=== PATIENT | female | born 1965 | race African-American/Black ===

== ENCOUNTER 2017-02-06 10:01 | Inpatient (IN) | payer OTHER ==
[2017-02-06] VITALS (8 sets, daily range): BP systolic 120–159; BP diastolic 71–96; PULSE 86–102; RESP 12–20; TEMP 97.8–98.8; O2SAT 95–100
[~2017-02-06] VITALS: Ht 180.3 cm; Wt 100.0 kg
[~2017-02-06 10:01] MED LIST: ALBUAER3 INH; AMLO5 PO; BENZ100 PO; DIGO0.12 PO; DOXY100C PO; GLIM1TAB PO; INSU100V2 SQ; SPIR25TA PO
[2017-02-06] MEDS ORDERED: ONDANSETRON HCL 4 MG/2 ML VIAL IVP ONE (10:30)
[2017-02-06] MEDS ORDERED: MORPHINE SULFATE 8 MG/ML INJ IV PUSH ONE (10:30)
[2017-02-06] MEDS ORDERED: SODIUM CHLOR 0.9% 1000 ML INJ 1,000 ML IV SCH (10:30)
[2017-02-06] MEDS ORDERED: SODIUM CHLORIDE 0.9% FLUSH 10 ML FLUSH IV FLUSH PRN ×2 (10:30→14:30)
[2017-02-06 11:38] LABS: BASOPHIL % 0.2 % (0.0-2.0); EOSINOPHIL # 0.1 TH/MM3 (0-0.4); HEMATOCRIT 36.3 % (35.0-46.0); HEMO FLAGS DIFF FINAL; LYMPH % 29.6 % (9.0-44.0); MEAN CELL VOLUME 74.7 FL (80.0-100.0); MEAN CORPUSCULAR HEMOGLOBIN 23.1 PG (27.0-34.0); MEAN CORPUSCULAR HGB CONC 30.9 % (32.0-36.0); MONO % 7.7 % (0.0-8.0); NEUT % 60.5 % (16.0-70.0); PLATELET COUNT 248 TH/MM3 (150-450); RED BLOOD COUNT 4.85 MIL/MM3 (4.00-5.30); RED CELL DISTRIBUTION WIDTH 14.2 % (11.6-17.2); WHITE BLOOD COUNT 6.6 TH/MM3 (4.0-11.0)
[2017-02-06 11:48] LABS: APTT (PATIENT) 27.9 SEC (24.3-30.1); INTERNATIONAL NORMALIZED RATIO 1.1 RATIO
[2017-02-06 11:53] LABS: BICARBONATE 22.7 MEQ/L (21.0-32.0); POTASSIUM 4.4 MEQ/L (3.5-5.1)
[2017-02-06 11:56] LABS: INDIRECT BILIRUBIN 0.3 MG/DL (0.0-0.8); TOTAL BILIRUBIN ADULT 0.4 MG/DL (0.2-1.0)
[2017-02-06] MEDS ORDERED: IOHEXOL 350 MG/ML 10 ML VIAL (for RAD DIAG) IV ONE (12:21)
[2017-02-06 12:25] LABS: BACTERIA, URINE MOD /hpf; BLOOD, URINE NEG (NEG); COMMENT (UR) CULTURE INDICATED; CULTURE IF INDICATED CULTURE INDICATED; GLUCOSE,URINE TRACE mg/dL (NEG); KETONE, URINE NEG (NEG); MUCUS URINE FEW /lpf (OCC); NITRITE,URINE POS (NEG); SQUAMOUS EPITHELIAL CELL URINE 4 /hpf (0-5); URINE COLOR YELLOW (YELLW/STRAW)
--- NOTE | 2017-02-06 12:41 | RADRPT ---
EXAM DATE/TIME: 02/06/2017 12:13 [place] COMPARISON: No previous studies available for comparison. INDICATIONS : Abdomen pain. IV CONTRAST: 75 cc Omnipaque 350 (iohexol) IV ORAL CONTRAST: No oral contrast ingested. RADIATION DOSE: 16.44 CTDIvol (mGy) MEDICAL HISTORY : Hypertension. SURGICAL HISTORY : section. Hysterectomy. ENCOUNTER: Initial ACUITY: 1 day PAIN SCALE: 4/10 LOCATION: Bilateral abdomen. TECHNIQUE: Volumetric scanning of the abdomen and pelvis was performed. Using automated exposure control and ad justment of the mA and/or kV according to patient size, radiation dose was kept as low as reasonably achievable to obtain optimal diagnostic quality images. DICOM format image data is available electro nically for review and comparison. FINDINGS: CT Abdomen: There is diminished enhancement involving the left kidney measures 4.1 cm in size could r epresent pyelonephritis in the appropriate clinical setting. The spleen, pancreas, right kidney, adre nals are unremarkable. There is no evidence for any appreciable pathological adenopathy, free fluid, or bowel obstruction. The liver is fatty without focal lesions or technique. CT pelvis: There is no evidence for mass, abscess formation, or any significant adenopathy within the pelvis. There is an approximate 4.7 cm lipoma in the left anterior thigh. CONCLUSION: 1. Abnormal diminished enhancement of the left kidney could represent pyelonephritis in the appropria te clinical setting or possibly an area of infarction. 2. Fatty liver. Shreyas Ng MD on February 06, 2017 at 12:34 Board Certified Radiologist. This report was verified electronically.
[2017-02-06] MEDS ORDERED: cefTRIAXone INJ 1,000 MG in SODIUM CHLORIDE 0.9% INJ 100 ML IV ONE (13:00)
[2017-02-06] MEDS ORDERED: ONDANSETRON HCL 4 MG/2 ML VIAL IV PUSH ONE (13:00)
--- NOTE | 2017-02-06 13:05 | PD ---
HPI Chief Complaint: GI Complaint Time Seen by Provider: 10:25 Travel History International Travel<30 days: No Contact w/Intl Traveler<30days: No Traveled to known affect area: No History of Present Illness HPI Patient is a 51-year-old female comes in complaining of nausea, vomiting, abdominal pain. She says it started with nausea last week, she started to have pain to her right flank and abdomen Th. She started vomiting yesterday. She says she does not know if she had a fever, because she has hot flashes. She denies dysuria, but does report increased urgency and frequency. She says the pain in her abdomen is in the upper and lower portions of her abdomen. She says she has never had any symptoms like this before. She denies chest pain or shortness of breath. PFSH Past Medical History Hx Anticoagulant Therapy: Yes (ASA) Asthma: Yes Autoimmune Disease: No Blood Disorders: No Anxiety: No Depression: Yes Heart Rhythm Problems: Yes Cancer: No Cardiovascular Problems: Yes (HTN) High Cholesterol: Yes Chemotherapy: No Congestive Heart Failure: Yes COPD: No Cerebrovascular Accident: No Coronary Artery Disease: Yes Diabetes: Yes Patient Takes Glucophage: No Endocrine: Yes Gastrointestinal Disorders: Yes Genitourinary: No Headaches: Yes Hepatitis: No Hiatal Hernia: No Hypertension: Yes Immune Disorder: No Medical other: No Musculoskeletal: No Neurologic: No Psychiatric: No Reproductive: No Respiratory: Yes (HX OF SINUS INFECTIONS) Radiation Therapy: No Seizures: No Sickle Cell Disease: No Thyroid Disease: No PNEUMOCCOCAL Vaccine (Year): 2 ?: Not Menopausal: Yes : 2 Para: 2 Past Surgical History AICD: No Gynecologic Surgery: Yes (C SECTION, LAP SUPRACERVICAL HYSTERECTOMY 2012) Hysterectomy: Yes Joint Replacement: No Pacemaker: No Other Surgery: Yes Social History Alcohol Use: No Tobacco Use: No Substance Use: No Allergies-Medications (Allergen,Severity, Reaction): Coded Allergies: Glucophage (Verified Allergy, Severe, SEVERE DIARRHEA, 06/19/16) Sulfa (Verified Allergy, Severe, Itching, 06/19/16) SEVERE ITCHING Reported Meds & Prescriptions Reported Meds & Active Scripts Active Tessalon Perles (Benzonatate) 100 Mg Cap 100 Mg PO TID PRN Proair Hfa 8.5 GM Inh (Albuterol Sulfate) 90 Mcg/Act Aer 2 Puff INH Q4-6H PRN 108 mcg/actuation Reported Humulin R Inj (Insulin Human Regular) 1,000 Unit/10 Ml Vial 14 Units SQ HS Spironolactone 25 Mg Tab 12.5 Mg PO DAILY Digoxin 0.125 Mg Tab 0.125 Mg PO DAILY Glimepiride 1 Mg Tab 8 Mg PO DAILY Take with breakfast or first main meal Norvasc (Amlodipine Besylate) 5 Mg Tab 5 Mg PO DAILY Review of Systems Except as stated in HPI: all other systems reviewed are Neg Eyes: No: Blurred Vision HENT: No: Headaches, Lightheadedness Cardiovascular: No: Chest Pain or Discomfort Respiratory: No: Shortness of Breath Gastrointestinal: Positive: Nausea, Vomiting, Abdominal Pain Genitourinary: Positive: Urgency, Frequency, Flank Pain Skin: No Rash, No Change in Pigmentation Neurologic: No: Weakness, Dizziness Physical Exam Narrative GENERAL: Awake and alert, in no acute distress. SKIN: Focused skin assessment warm/dry. HEAD: Atraumatic. Normocephalic. EYES: Pupils equal and round. No scleral icterus. ENT: Mucous membranes pink and moist. NECK: Trachea midline. No JVD. CARDIOVASCULAR: Regular rate and rhythm. No murmur appreciated. RESPIRATORY: No accessory muscle use. Clear to auscultation. Breath sounds equal bilaterally. GASTROINTESTINAL: Abdomen soft, nondistended. Right CVA tenderness. Tender to palpation of the epigastric and right upper quadrant area. Tender to palpation across lower abdomen. No rebound or guarding. MUSCULOSKELETAL: No obvious deformities. No clubbing. No cyanosis. No edema. NEUROLOGICAL: Awake and alert. No obvious cranial nerve deficits. Motor grossly within normal limits. Normal speech. PSYCHIATRIC: Appropriate mood and affect; insight and judgment normal. Data Data Last Documented VS Vital Signs Date Time Temp Pulse Resp B/P Pulse Ox O2 Delivery O2 Flow Rate FiO2 02/06/17 12:04 93 18 132/71 97 Room Air 02/06/17 10:45 2 02/06/17 10:03 98.2 Orders Electrocardiogram (02/06/17 ) Basic Metabolic Panel (Bmp) (02/06/17 10:30) Complete Blood Count With Diff (02/06/17 10:30) Lipase (02/06/17 10:30) Prothrombin Time / Inr (Pt) (02/06/17 10:30) Act Partial Throm Time (Ptt) (02/06/17 10:30) Urinalysis - C+S If Indicated (02/06/17 10:30) Ua Includes Microscopic (02/06/17 10:30) Ct Abd/Pel W Iv Contrast(Rout) (02/06/17 10:30) Iv Access Insert/Monitor (02/06/17 10:30) Ecg Monitoring (02/06/17 10:30) Oximetry (02/06/17 10:30) Ondansetron Inj (Zofran Inj) (02/06/17 10:30) Sodium Chlor 0.9% 1000 Ml Inj (Ns 1000 M (02/06/17 10:30) Sodium Chloride 0.9% Flush (Ns Flush) (02/06/17 10:30) Hepatic Functional Panel (02/06/17 10:30) Morphine Inj (Morphine Inj) (02/06/17 10:30) Iohexol 350 Inj (Omnipaque 350 Inj) (02/06/17 12:21) Urine Culture (02/06/17 12:05) Ceftriaxone Inj (Rocephin Inj) (02/06/17 13:00) Ondansetron Inj (Zofran Inj) (02/06/17 13:00) Ketorolac Inj (Toradol Inj) (02/06/17 14:00) Oxycodone-Acetamin 5-325 Mg (Percocet (02/06/17 14:00) Admit Order (Ed Use Only) (02/06/17 ) Labs Laboratory Tests Test 02/06/17 02/06/17 10:47 12:05 White Blood Count 6.6 TH/MM3 Red Blood Count 4.85 MIL/MM3 Hemoglobin 11.2 GM/DL Hematocrit 36.3 % Mean Corpuscular Volume 74.7 FL Mean Corpuscular Hemoglobin 23.1 PG Mean Corpuscular Hemoglobin 30.9 % Concent Red Cell Distribution Width 14.2 % Platelet Count 248 TH/MM3 Mean Platelet Volume 8.7 FL Neutrophils (%) (Auto) 60.5 % Lymphocytes (%) (Auto) 29.6 % Monocytes (%) (Auto) 7.7 % Eosinophils (%) (Auto) 2.0 % Basophils (%) (Auto) 0.2 % Neutrophils # (Auto) 4.0 TH/MM3 Lymphocytes # (Auto) 2.0 TH/MM3 Monocytes # (Auto) 0.5 TH/MM3 Eosinophils # (Auto) 0.1 TH/MM3 Basophils # (Auto) 0.0 TH/MM3 CBC Comment DIFF FINAL Differential Comment Prothrombin Time 12.0 SEC Prothromb Time International 1.1 RATIO Ratio Activated Partial 27.9 SEC Thromboplast Time Sodium Level 136 MEQ/L Potassium Level 4.4 MEQ/L Chloride Level 105 MEQ/L Carbon Dioxide Level 22.7 MEQ/L Anion Gap 8 MEQ/L Blood Urea Nitrogen 18 MG/DL Creatinine 0.97 MG/DL Estimat Glomerular Filtration 73 ML/MIN Rate Random Glucose 287 MG/DL Calcium Level 9.2 MG/DL Total Bilirubin 0.4 MG/DL Direct Bilirubin 0.1 MG/DL Indirect Bilirubin 0.3 MG/DL Aspartate Amino Transf 10 U/L (AST/SGOT) Alanine Aminotransferase 17 U/L (ALT/SGPT) Alkaline Phosphatase 94 U/L Total Protein 7.7 GM/DL Albumin 3.3 GM/DL Lipase 80 U/L Urine Color YELLOW Urine Turbidity HAZY Urine pH 5.0 Urine Specific [place] 1.010 Urine Protein NEG mg/dL Urine Glucose (UA) TRACE mg/dL Urine Ketones NEG mg/dL Urine Occult Blood NEG Urine Nitrite POS Urine Bilirubin NEG Urine Urobilinogen LESS THAN 2.0 MG/DL Urine Leukocyte Esterase LARGE Urine RBC 2 /hpf Urine WBC 18 /hpf Urine Squamous Epithelial 4 /hpf Cells Urine Bacteria MOD /hpf Urine Mucus FEW /lpf Microscopic Urinalysis Comment CULTURE INDICATED MDM Medical Decision Making Medical Screen Exam Complete: Yes Emergency Medical Condition: Yes Medical Record Reviewed: Yes Differential Diagnosis UTI versus cholecystitis versus pancreatitis versus pyelonephritis Narrative Course Patient is a 51-year-old female comes in complaining of nausea, vomiting, abdominal pain. Exam shows tenderness to palpation without rebound or guarding. IV established, labs sent. Urinalysis is positive for UTI. Patient given IV fluids, morphine, Zofran. CT of the abdomen and pelvis performed shows likely pyelonephritis. Patient given a dose of Rocephin. Given additional Zofran for continued nausea. She continues to have pain and nausea. She will be placed in observation for further management. Diagnosis Primary Impression: Pyelonephritis Admitting Information Admitting Physician Requests: Observation Condition: Stable Мария Harden MD Feb 06, 2017 13:05
[2017-02-06] MEDS ORDERED: oxyCODONE/ACETAMINOPHEN 5 MG/325 MG TAB PO ONE (14:00)
[2017-02-06] MEDS ORDERED: KETOROLAC TROMETHAMINE 30 MG/ML (IVP) VIAL IV PUSH ONE (14:00)
[2017-02-06] MEDS ORDERED: MORPHINE SULFATE 4 MG/ML INJ IV PUSH PRN (14:30)
[2017-02-06] MEDS ORDERED: DEXTROSE 50% IN WATER 50 ML VIAL(D50) IV PRN (14:30)
[2017-02-06] MEDS ORDERED: GLUCAGON 1 MG/ML VIAL OTHER PRN (14:30)
[2017-02-06] MEDS ORDERED: NALOXONE HCL 0.4 MG/ML AMP IV PRN (14:30)
[2017-02-06] MEDS ORDERED: ACETAMINOPHEN 325 MG TAB PO PRN (14:30)
[2017-02-06] MEDS ORDERED: ALBUTEROL SULFATE 90 MCG/ACT HFA 8 GM INHALER INH PRN (14:45)
[2017-02-06] MEDS: SODIUM CHLOR 0.9% 1000 ML INJ 1,000 ML IV SCH (15:16)
[2017-02-06] MEDS: HEPARIN SODIUM - SQ 10,000 UNITS/ML VIAL SQ SCH (15:17)
--- NOTE | 2017-02-06 15:35 | HHI.HP ---
[facility] Vick Carney DO Admission Diagnosis pyelonephritis Diagnoses: Chief Complaint: lower abdomen pain Travel History International Travel<30 Days: No Contact w/Intl Traveler <30 Da: No Traveled to Known Affected Are: No History of Present Illness This is a pleasant 51-year-old female with significant past medical history of cardiomyopathy, CHF, type 2 diabetes, hypertension. Patient presented to the emergency room for evaluation of lower abdominal pain associated with nausea vomiting diarrhea. Patient indicates symptoms started on Tuesday, she noted pelvic pain with urine that was concentrated, dribbling small amounts. Over the next couple days, she started to have chills and night sweats, unsure if she had fever. Today she had nausea vomiting at least 3 times , no hematemesis. She's also noted diarrhea that started yesterday, watery, multiple episodes. Indicates that today the pain is more severe and now present to the right flank. Denies any chest pain, no shortness of breath. Patient was evaluated in emergency room, urinalysis was positive for nitrates leukocyte esterase and bacteria. BMP remarkable for blood glucose 287. Creatinine stable. CBC essentially unremarkable except for hemoglobin 11.2. Vital signs temperature 90.2, pulse rate 102, respiratory rate 15, for pressure 159/96 sats 98% on [address] of the abdomen and pelvis showed abnormal diminished enhancement of the left kidney that could represent pyelonephritis in the appropriate clinical setting or possibly an area of infarction. Also fatty liver. Patient was given IV fluids, started on antibiotics. At this time , she is resting comfortably. Patient is admitted for further evaluation and treatment. Review of Systems Constitutional: COMPLAINS OF: Chills, Change in appetite, Night Sweats Endocrine: DENIES: Abnorml menstrual pattern, Heat/cold intolerance, Polydipsia , Polyuria, Polyphagia Eyes: DENIES: Blurred vision, Diplopia, Eye inflammation, Eye pain, Vision loss , Photosensitivity, Double Vision Ears, nose, mouth, throat: DENIES: Tinnitus, Hearing loss, Vertigo, Nasal discharge, Oral lesions, Throat pain, Hoarseness, Ear Pain, Running Nose, Epistaxis, Sinus Pain, Toothache, Odynophagia Respiratory: DENIES: Apneas, Cough, Snoring, Wheezing, Hemoptysis, Sputum production, Shortness of breath Cardiovascular: DENIES: Chest pain, Palpitations, Syncope, Dyspnea on Exertion , PND, Lower Extremity Edema, Orthopnea, Claudication Gastrointestinal: COMPLAINS OF: Abdominal pain, Diarrhea, Nausea, Vomiting, DENIES: Black stools, Bloody stools, Constipation, Difficulty Swallowing, Anorexia Genitourinary: COMPLAINS OF: Urinary frequency, DENIES: Abnormal vaginal bleeding, Dysmenorrhea, Dyspareunia, Sexual dysfunction, Urinary incontinence, Urgency, Hematuria, Dysuria, Nocturia, Vaginal discharge Musculoskeletal: DENIES: Joint pain, Muscle aches, Stiffness, Joint Swelling, Back pain, Neck pain Integumentary: DENIES: Abnormal pigmentation, Pruritus, Rash, Nail changes, Breast masses, Breast skin changes, Nipple discharge Hematologic/lymphatic: DENIES: Bruising, Lymphadenopathy Immunologic/allergic: DENIES: Eczema, Urticaria Neurologic: DENIES: Abnormal gait, Headache, Localized weakness, Paresthesias, Seizures, Speech Problems, Tremor, Poor Balance Psychiatric: DENIES: Anxiety, Confusion, Mood changes, Depression, Hallucinations, Agitation, Suicidal Ideation, Homicidal Ideation, Delusions Past Family Social History Past Medical History Type 2 diabetes Hypertension Hyperlipidemia Cardiomyopathy CHF Peripheral neuropathy Allergic rhinitis Mitral valve insufficiency Palpitations, possibly atrial fibrillation Onychomycosis Past Surgical History Cardiac catheterization Hysterectomy in 2013 Colonoscopy Reported Medications Reported Meds & Active Scripts Active Tessalon Perles (Benzonatate) 100 Mg Cap 100 Mg PO TID PRN Proair Hfa 8.5 GM Inh (Albuterol Sulfate) 90 Mcg/Act Aer 2 Puff INH Q4-6H PRN 108 mcg/actuation Reported Humulin R Inj (Insulin Human Regular) 1,000 Unit/10 Ml Vial 14 Units SQ HS Spironolactone 25 Mg Tab 12.5 Mg PO DAILY Digoxin 0.125 Mg Tab 0.125 Mg PO DAILY Glimepiride 1 Mg Tab 8 Mg PO DAILY Take with breakfast or first main meal Norvasc (Amlodipine Besylate) 5 Mg Tab 5 Mg PO DAILY Allergies: Coded Allergies: Glucophage (Verified Allergy, Severe, SEVERE DIARRHEA, 06/19/16) Sulfa (Verified Allergy, Severe, Itching, 06/19/16) SEVERE ITCHING Active Ordered Medications Inpatient Medications Acetaminophen (Tylenol) 650 mg Q4H PRN PO TEMP > 100.4; Start 02/06/17 at 14:30 Albuterol Sulfate (Proair Hfa Inh) 2 puff Q4H PRN INH SOB/WHEEZING; Start 02/06 at 14:45 Amlodipine Besylate (Norvasc) 5 mg DAILY PO ; Start 02/07/17 at 09:00 Ceftriaxone Sodium/Sodium Chloride (Rocephin Inj/NS Inj) 100 ml @ 200 mls/hr Q24H IV ; Start 02/07/17 at 13:00 Dextrose (D50w (Vial) Inj) 50 ml UNSCH PRN IV HYPOGLYCEMIA-SEE COMMENTS; Start 02/06/17 at 14:30 Digoxin (Lanoxin) 0.125 mg DAILY PO ; Start 02/07/17 at 09:00 Glimepiride (Amaryl) 8 mg DAILY PO ; Start 02/07/17 at 09:00; Status UNV Glucagon (Glucagon Inj) 1 mg UNSCH PRN OTHER HYPOGLYCEMIA-SEE COMMENTS; Start 02/06/17 at 14:30 Heparin Sodium (Porcine) (Heparin Inj) 5,000 units Q12H SQ ; Start 02/06/17 at 15:00 Insulin Aspart (NovoLOG SUPPLEMENTAL SCALE) 1 ACHS SLIDING SCALE SQ ; Start at 16:00 Ketorolac Tromethamine (Toradol Inj) 30 mg ONCE ONCE IV PUSH Last administered on 02/06/17 14:06; Start 02/06/17 at 14:00; Stop 02/06/17 at 14:01 ; Status DC Morphine Sulfate (Morphine Inj) 2 mg Q6H PRN IV PUSH pain 6-10; Start 02/06/17 at 14:30 Naloxone HCl 0.4 mg 0.4 mg UNSCH PRN IV SEE LABEL COMMENTS; Start 02/06/17 at 14:30 Ondansetron HCl (Zofran Inj) 4 mg Q6H PRN IVP NAUSEA OR VOMITING; Start at 14:30 Oxycodone/ Acetaminophen (Percocet 5-325 Mg) 1 tab Q6H PRN PO pain 1-5; Start 02/06/17 at 14:30 Oxycodone/ Acetaminophen 1 tab 1 tab ONCE ONCE PO Last administered on 14:07; Start 02/06/17 at 14:00; Stop 02/06/17 at 14:01; Status DC Sodium Chloride (NS 1000 ml Inj) 1,000 ml @ 100 mls/hr Q10H IV ; Start at 14:28 Sodium Chloride (NS Flush) 2 ml BID IV FLUSH ; Start 02/06/17 at 21:00 Family History Mother is alive and well, has some type of disease that affects eyesight Father , from prostate cancer Social History Patient is , has 2 children, 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 No smoking, no alcohol, tobacco abuse. Physical Exam Vital Signs Vital Signs Date Time Temp Pulse Resp B/P Pulse Ox O2 Delivery O2 Flow Rate FiO2 02/06/17 14:43 94 18 148/86 99 Room Air 02/06/17 12:04 93 18 132/71 97 Room Air 02/06/17 10:45 97 Nasal Cannula 2 02/06/17 10:15 18 02/06/17 10:03 98.2 102 15 159/96 98 Physical Exam GENERAL: This is a well-nourished, well-developed patient, in no apparent distress. SKIN: No rashes, ecchymoses or lesions. Cool and dry. HEAD: Atraumatic. Normocephalic. No temporal or scalp tenderness. EYES: Pupils equal round and reactive. Extraocular motions intact. No scleral icterus. No injection or drainage. ENT: Nose without bleeding, purulent drainage or septal hematoma. Throat without erythema, tonsillar hypertrophy or exudate. Uvula midline. Airway patent. NECK: Trachea midline. No JVD or lymphadenopathy. Supple, nontender, no meningeal signs. CARDIOVASCULAR: Regular rate and rhythm without murmurs, gallops, or rubs. RESPIRATORY: Clear to auscultation. Breath sounds equal bilaterally. No wheezes , rales, or rhonchi. GASTROINTESTINAL: Abdomen soft, pelvic tenderness, voluntary guarding. Nondistended. No hepato-splenomegaly, or palpable masses. No guarding. Right flank pain. MUSCULOSKELETAL: Extremities without clubbing, cyanosis, or edema. No joint tenderness, effusion, or edema noted. No calf tenderness. Negative Homans sign bilaterally. NEUROLOGICAL: Awake and alert. Cranial nerves II through XII intact. Motor and sensory grossly within normal limits. Five out of 5 muscle strength in all muscle groups. Normal speech. Laboratory Laboratory Tests Test 02/06/17 02/06/17 10:47 12:05 White Blood Count 6.6 Red Blood Count 4.85 Hemoglobin 11.2 Hematocrit 36.3 Mean Corpuscular Volume 74.7 Mean Corpuscular Hemoglobin 23.1 Mean Corpuscular Hemoglobin 30.9 Concent Red Cell Distribution Width 14.2 Platelet Count 248 Mean Platelet Volume 8.7 Neutrophils (%) (Auto) 60.5 Lymphocytes (%) (Auto) 29.6 Monocytes (%) (Auto) 7.7 Eosinophils (%) (Auto) 2.0 Basophils (%) (Auto) 0.2 Neutrophils # (Auto) 4.0 Lymphocytes # (Auto) 2.0 Monocytes # (Auto) 0.5 Eosinophils # (Auto) 0.1 Basophils # (Auto) 0.0 CBC Comment DIFF FINAL Differential Comment Prothrombin Time 12.0 Prothromb Time International 1.1 Ratio Activated Partial 27.9 Thromboplast Time Sodium Level 136 Potassium Level 4.4 Chloride Level 105 Carbon Dioxide Level 22.7 Anion Gap 8 Blood Urea Nitrogen 18 Creatinine 0.97 Estimat Glomerular Filtration 73 Rate Random Glucose 287 Calcium Level 9.2 Total Bilirubin 0.4 Direct Bilirubin 0.1 Indirect Bilirubin 0.3 Aspartate Amino Transf 10 (AST/SGOT) Alanine Aminotransferase 17 (ALT/SGPT) Alkaline Phosphatase 94 Total Protein 7.7 Albumin 3.3 Lipase 80 Urine Color YELLOW Urine Turbidity HAZY Urine pH 5.0 Urine Specific [place] 1.010 Urine Protein NEG Urine Glucose (UA) TRACE Urine Ketones NEG Urine Occult Blood NEG Urine Nitrite POS Urine Bilirubin NEG Urine Urobilinogen LESS THAN 2.0 Urine Leukocyte Esterase LARGE Urine RBC 2 Urine WBC 18 Urine Squamous Epithelial 4 Cells Urine Bacteria MOD Urine Mucus FEW Microscopic Urinalysis Comment CULTURE INDICATED Date/Time Procedure Status Source Growth 02/06/17 12:05 Urine Culture Received Urine Clean Catch Pending Result Diagram: 02/06/17 1047 02/06/17 1047 Imaging Last Impressions Abdomen/Pelvis CT 02/06/17 1030 Signed Impressions: Service Date/Time: Monday, February 06, 2017 12:13 - CONCLUSION: 1. Abnormal diminished enhancement of the left kidney could represent pyelonephritis in the appropriate clinical setting or possibly an area of infarction. 2. Fatty liver. Shreyas Ng MD Assessment and Plan Problem List: (1) Pyelonephritis (2) CHF (congestive heart failure) (3) Hyperlipidemia (4) Cardiomyopathy (5) HTN (hypertension) (6) Diabetes 1.5, managed as type 2 Assessment and Plan Admit to Dr. Marquis 51-year-old female presented with pelvic pain, associated with urinary frequency , nausea, vomiting, diarrhea. CT findings of pyelonephritis. -Hydrate cautiously, normal saline at 75 Continue Rocephin follow cultures -Continue with morphine as needed for severe pain Antiemetics as needed -We'll check stools for C. difficile Chronic congestive heart failure, stable Cardiomyopathy -Monitor for signs and symptoms of fluid overload Continue with spironolactone Continue digoxin -Monitor renal function Type 2 diabetes Accu-Cheks before meals and at bedtime with insulin therapy as needed Hypertension, stable Continue home medications Home medications reviewed, initiated as indicated Heparin 5000 units subcutaneous twice a day for DVT prophylaxis Plan of care discussed with the patient, attending and registered nurse. Further management of the patient will be dependent on the hospital course This patient was seen by myself and Dr. Marquis, this H&P is written on her behalf Problem Qualifiers (1) CHF (congestive heart failure): Qualified Code: I50.22 - Chronic systolic congestive heart failure (2) Hyperlipidemia: Qualified Code: E78.5 - Hyperlipidemia, unspecified hyperlipidemia type (3) Cardiomyopathy: Qualified Code: I42.9 - Cardiomyopathy, unspecified type (4) HTN (hypertension): Qualified Code: I10 - Essential hypertension Trisha Craig Feb 06, 2017 15:35
[2017-02-06] MEDS: ONDANSETRON HCL 4 MG/2 ML VIAL IVP PRN (16:56)
[2017-02-06] MEDS: INSULIN ASPART SUPPLEMENTAL SCALE SQ SCH ×2 (18:48→21:07)
--- NOTE | 2017-02-06 18:56 | EKG ---
Date Performed: 02/06/2017 Time Performed: 10:16:27 PTAGE: 51 years EKG: Sinus rhythm WITH OCCASIONAL VENTRICULAR PREMATURE COMPLEXES POSSIBLE LEFT ATRIAL ENLARGEMENT LEFT AXIS DEVIATION POSSIBLE LEFT VENTRICULAR HYPERTROPHY NONSPECIFIC T-WAVE ABNORMALITY ABNORMAL ECG PREVIOUS TRACING : 11/21/2014 09.12 No significant change from previous tracing noted. DOCTOR: Romie Bahena Interpretating Date/Time 02/06/2017 18:55:26
[2017-02-06] MEDS ORDERED: GABA300C5 PO (20:57)
[2017-02-06] MEDS: SODIUM CHLORIDE 0.9% FLUSH 10 ML FLUSH IV FLUSH SCH (21:00)
[2017-02-06] MEDS: oxyCODONE/ACETAMINOPHEN 5 MG/325 MG TAB PO PRN (21:07)
[2017-02-07] VITALS (11 sets, daily range): BP systolic 134–157; BP diastolic 67–89; PULSE 94–107; RESP 12–20; TEMP 99–99.5; O2SAT 94–96
[2017-02-07] MEDS: HEPARIN SODIUM - SQ 10,000 UNITS/ML VIAL SQ SCH ×2 (03:00→16:58)
[2017-02-07] MEDS: SODIUM CHLOR 0.9% 1000 ML INJ 1,000 ML IV SCH ×2 (03:26→05:55)
[2017-02-07] MEDS: INSULIN ASPART SUPPLEMENTAL SCALE SQ SCH ×4 (06:01→21:03)
[2017-02-07] MEDS: oxyCODONE/ACETAMINOPHEN 5 MG/325 MG TAB PO PRN ×3 (06:02→18:27)
[2017-02-07 07:41] LABS: BICARBONATE 21.8 MEQ/L (21.0-32.0)
[2017-02-07 07:49] LABS: AUTOMATED NEUTROPHIL # 4.2 TH/MM3 (1.8-7.7); BASOPHIL % 0.5 % (0.0-2.0); EOSINOPHIL # 0.1 TH/MM3 (0-0.4); EOSINOPHIL % 1.2 % (0.0-4.0); HEMATOCRIT 33.6 % (35.0-46.0); HEMO FLAGS DIFF FINAL; LYMPH % 23.4 % (9.0-44.0); LYMPHOCYTE # 1.4 TH/MM3 (1.0-4.8); MEAN CELL VOLUME 74.1 FL (80.0-100.0); MEAN CORPUSCULAR HEMOGLOBIN 23.5 PG (27.0-34.0); MEAN CORPUSCULAR HGB CONC 31.7 % (32.0-36.0); MONO % 5.6 % (0.0-8.0); NEUT % 69.3 % (16.0-70.0); PLATELET COUNT 194 TH/MM3 (150-450); RED BLOOD COUNT 4.53 MIL/MM3 (4.00-5.30); RED CELL DISTRIBUTION WIDTH 14.4 % (11.6-17.2)
[2017-02-07] MEDS: GLIMEPIRIDE 4 MG TAB PO SCH (08:09)
[2017-02-07] MEDS: DIGOXIN 0.125 MG TAB PO SCH (08:09)
[2017-02-07] MEDS: SODIUM CHLORIDE 0.9% FLUSH 10 ML FLUSH IV FLUSH SCH ×2 (08:10→21:00)
[2017-02-07] MEDS: ONDANSETRON HCL 4 MG/2 ML VIAL IVP PRN (08:10)
[2017-02-07] MEDS: METOPROLOL TARTRATE 25 MG TAB PO SCH ×2 (08:10→21:00)
--- NOTE | 2017-02-07 08:14 | HHI.PR ---
Subjective Subjective Remarks slept fair no cp no sob no fever noted tachycardic overnight, tele reviewed, inc. ectopy, PVCs, triplets, couples c/o palpitations states she has not f/u with card in many years, PCP manages CHF. No recent echo has been sob with activity for many months but did not think much of it. Review of Systems Constitutional Constitutional Remarks 12 POINT ROS COMPLETED, NEGATIVE EXCEPT NOTED ABOVE Vitals/Results Intake & Output 02/06/17 02/06/17 02/07/17 14:59 22:59 06:59 Intake Total 240 ml Balance 240 ml Intake Oral 240 ml # Voids 1 Vital Signs Vital Signs Date Time Temp Pulse Resp B/P Pulse Ox O2 Delivery O2 Flow Rate FiO2 02/07/17 07:40 99.5 101 12 137/67 95 02/07/17 04:38 94 02/07/17 04:30 99.4 101 20 157/77 95 02/07/17 00:00 98 02/06/17 23:26 98.8 98 20 126/78 96 02/06/17 20:00 93 02/06/17 19:54 97.8 86 20 120/78 100 02/06/17 16:23 97.8 86 12 120/72 95 02/06/17 14:43 94 18 148/86 99 Room Air 02/06/17 12:04 93 18 132/71 97 Room Air 02/06/17 10:45 97 Nasal Cannula 2 02/06/17 10:15 18 02/06/17 10:03 98.2 102 15 159/96 98 CBC/BMP: 02/07/17 0632 02/07/17 0632 Lab Results Laboratory Tests Test 02/06/17 02/06/17 02/07/17 10:47 12:05 06:32 White Blood Count 6.6 TH/MM3 6.0 TH/MM3 Red Blood Count 4.85 MIL/MM3 4.53 MIL/MM3 Hemoglobin 11.2 GM/DL 10.6 GM/DL Hematocrit 36.3 % 33.6 % Mean Corpuscular Volume 74.7 FL 74.1 FL Mean Corpuscular Hemoglobin 23.1 PG 23.5 PG Mean Corpuscular Hemoglobin 30.9 % 31.7 % Concent Red Cell Distribution Width 14.2 % 14.4 % Platelet Count 248 TH/MM3 194 TH/MM3 Mean Platelet Volume 8.7 FL 8.9 FL Neutrophils (%) (Auto) 60.5 % 69.3 % Lymphocytes (%) (Auto) 29.6 % 23.4 % Monocytes (%) (Auto) 7.7 % 5.6 % Eosinophils (%) (Auto) 2.0 % 1.2 % Basophils (%) (Auto) 0.2 % 0.5 % Neutrophils # (Auto) 4.0 TH/MM3 4.2 TH/MM3 Lymphocytes # (Auto) 2.0 TH/MM3 1.4 TH/MM3 Monocytes # (Auto) 0.5 TH/MM3 0.3 TH/MM3 Eosinophils # (Auto) 0.1 TH/MM3 0.1 TH/MM3 Basophils # (Auto) 0.0 TH/MM3 0.0 TH/MM3 CBC Comment DIFF FINAL DIFF FINAL Differential Comment Prothrombin Time 12.0 SEC Prothromb Time International 1.1 RATIO Ratio Activated Partial 27.9 SEC Thromboplast Time Sodium Level 136 MEQ/L 135 MEQ/L Potassium Level 4.4 MEQ/L 4.0 MEQ/L Chloride Level 105 MEQ/L 107 MEQ/L Carbon Dioxide Level 22.7 MEQ/L 21.8 MEQ/L Anion Gap 8 MEQ/L 6 MEQ/L Blood Urea Nitrogen 18 MG/DL 18 MG/DL Creatinine 0.97 MG/DL 0.90 MG/DL Estimat Glomerular Filtration 73 ML/MIN 80 ML/MIN Rate Random Glucose 287 MG/DL 173 MG/DL Calcium Level 9.2 MG/DL 8.2 MG/DL Total Bilirubin 0.4 MG/DL Direct Bilirubin 0.1 MG/DL Indirect Bilirubin 0.3 MG/DL Aspartate Amino Transf 10 U/L (AST/SGOT) Alanine Aminotransferase 17 U/L (ALT/SGPT) Alkaline Phosphatase 94 U/L Total Protein 7.7 GM/DL Albumin 3.3 GM/DL Lipase 80 U/L Urine Color YELLOW Urine Turbidity HAZY Urine pH 5.0 Urine Specific [place] 1.010 Urine Protein NEG mg/dL Urine Glucose (UA) TRACE mg/dL Urine Ketones NEG mg/dL Urine Occult Blood NEG Urine Nitrite POS Urine Bilirubin NEG Urine Urobilinogen LESS THAN 2.0 MG/DL Urine Leukocyte Esterase LARGE Urine RBC 2 /hpf Urine WBC 18 /hpf Urine Squamous Epithelial 4 /hpf Cells Urine Bacteria MOD /hpf Urine Mucus FEW /lpf Microscopic Urinalysis Comment CULTURE INDICATED Microbiology Microbiology 02/06/17 Urine Culture, Received Pending Physical Exam General General Appearance: Well Developed, Well Nourished, No Acute Distress, Comfortable Eyes Eye Exam: Pupils Equal, Pupils Reactive Ears & Nose Ears & Nose Exam: Nasal Mucosa [place] Throat Throat Exam: Oral Mucosa [place] & Moist Neck Neck Exam: Neck Supple, Trachea Midline Pulmonary Resp Exam: Crackles Cardiology CV Exam: Arrhythmia, Tachycardia Gastrointestinal/Abdomen GI Exam: Soft, Non-Tender, Non-Distended Musculoskeletal MS Exam: Joints Intact Integumentary Skin Exam: Warm, Dry Extremeties Extremities Exam: No Edema, Pedal Pulses Palpable Neurologic Neuro Exam: Alert, Awake, Oriented, Speech Clear, Moving All Extremities, No Focal Deficits Psychiatric Psych Exam: Appropriate Responses VTE Prophylaxis VTE Prophylaxis Device: SCDs Assessment/Plan Problem List: (1) Pyelonephritis (2) CHF (congestive heart failure) (3) Hyperlipidemia (4) Cardiomyopathy (5) HTN (hypertension) (6) Diabetes 1.5, managed as type 2 Assessment/Plan 51-year-old female presented with pelvic pain, associated with urinary frequency , nausea, vomiting, diarrhea. CT findings of pyelonephritis. Continue Rocephin follow cultures -Continue with morphine as needed for severe pain Antiemetics as needed -pending stools for C. difficile-no diarrhea last night -pelvic pain improved Chronic congestive heart failure, stable Cardiomyopathy noted with rales, ectopy, bigeminy, triplets Continue with spironolactone, inc. to 25 mg po daily Continue digoxin -BMP reviewed, okay, add Mg level -CXR now -BNP -2D echo, last one at this facility 2003 EF 30-35%. -consult cardiology for evaluatin -stop IVF Type 2 diabetes Accu-Cheks before meals and at bedtime with insulin therapy as needed Hypertension, stable Continue home medications Heparin 5000 units subcutaneous twice a day for DVT prophylaxis f/u cxr, bnp and mg poss home tomorrow D/W RN D/W Dr. Marquis D/W pt This patient was seen by myself and Dr. Marquis, this note is written on her behalf Problem Qualifiers (1) CHF (congestive heart failure): Qualified Code: I50.22 - Chronic systolic congestive heart failure (2) Hyperlipidemia: Qualified Code: E78.5 - Hyperlipidemia, unspecified hyperlipidemia type (3) Cardiomyopathy: Qualified Code: I42.9 - Cardiomyopathy, unspecified type (4) HTN (hypertension): Qualified Code: I10 - Essential hypertension Trisha Craig Feb 07, 2017 08:14
[2017-02-07] MEDS ORDERED: PILL SPLITTER OTHER PRN (08:15)
[2017-02-07] MEDS: SPIRONOLACTONE 25 MG TAB PO SCH (08:35)
[2017-02-07] MEDS ORDERED: SPIRONOLACTONE 25 MG TAB PO SCH (09:00)
[2017-02-07] MEDS ORDERED: amLODIPine BESYLATE 5 MG TAB PO SCH (09:00)
--- NOTE | 2017-02-07 09:13 | RADRPT ---
EXAM DATE/TIME: 02/07/2017 08:22 [facility] COMPARISON: CHEST SINGLE AP, June 19, 2016, 16:22. INDICATIONS : Congestive Heart Failure. Patient states she has a kidney infection. MEDICAL HISTORY : Congestive heart failure. Hypertension SURGICAL HISTORY : section. Hysterectomy ENCOUNTER: Subsequent ACUITY: 2 days PAIN SCORE: 0/10 LOCATION: Bilateral chest FINDINGS: The lungs are clear. The heart is minimally enlarged. The pulmonary vascularity is normal. There is n o evidence for infiltrate or failure. The portion of the bony skeleton visualized is unremarkable. CONCLUSION: Compensated cardiomegaly otherwise negative Leonard Figueroa MD FACR on February 07, 2017 at 9:11 Board Certified Radiologist. This report was verified electronically.
--- NOTE | 2017-02-07 10:00 | MB ---
cc: GREGG BIGGS MD DATE OF CONSULTATION: 02/07/2017 REASON FOR CONSULTATION Cardiomyopathy. HISTORY OF PRESENT ILLNESS A 51-year-old female. She has a prior history of cardiomyopathy probably nonischemic with an ejection fraction 25% back in 2003. She does have chronic systolic heart failure, diabetes, hypertension. She came into the emergency department with lower abdominal pain, nausea and vomiting. Urinalysis was positive for an urinary tract infection. CT of the abdomen was suspicious for polynephritis. The patient was being treated with IV fluids and antibiotics. Telemetry overnight showed significant mild ectopy primarily PVCs and singlets, bigeminy and couplet patterns. She is relatively asymptomatic. No runs of ventricular tachycardia noted. We are consulted for further recommendations. PAST MEDICAL HISTORY 1. Diabetes. 2. Hypertension. 3. Hyperlipidemia. 4. Cardiomyopathy. 5. CHF. 6. Peripheral neuropathy. 7. Mitral valve insufficiency. 8. Palpitations. 9. Onychomycosis. PAST SURGICAL HISTORY 1. Cardiac cath. 2. . 3. Hysterectomy. 4. Colonoscopy. MEDICATIONS Reported medications: 1. Humulin insulin. 2. Spirolactone. 3. Digoxin. 4. Glimepiride. 5. Norvasc. ALLERGIES 1. GLUCOPHAGE. 2. SULFA. 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 FAMILY HISTORY Denies any family history of early coronary artery disease or sudden cardiac . REVIEW OF SYSTEMS A 12-point review of systems was performed and negative unless otherwise noted in the history of present illness. PHYSICAL EXAMINATION VITAL SIGNS: Temperature 99, heart rate 101, blood pressure 137/67 mmHg. GENERAL: Alert and oriented x3, in no acute distress. HEENT: Pupils reactive to light and accommodation. Extraocular movements intact. NECK: No jugular venous distention. No thyromegaly or lymphadenopathy. No carotid bruits. LUNGS: Clear to auscultation bilaterally. CARDIOVASCULAR: Regular rate and rhythm with ectopy, 2/6 systolic murmur. No rubs or gallops. ABDOMEN: Nontender, nondistended. Good bowel sounds. No hepatosplenomegaly. EXTREMITIES: No clubbing, cyanosis or edema. Good peripheral pulses. NEUROLOGIC: Cranial nerve intact. Motor and sensory grossly intact. LABORATORY WBC 6.1, hemoglobin 10.6, platelet count 194. INR is 1. Sodium 135, potassium 4.0, BUN 18, creatinine 0.92. ELECTROCARDIOGRAM Electrocardiogram is sinus rhythm, borderline left axis deviation, nonspecific T-wave abnormality. ASSESSMENT 1. Cardiomyopathy. 2. Chronic congestive heart failure compensated. 3. Ventricular ectopy. 4. Hypertension. 5. Hyperlipidemia. 6. Diabetes. PLAN The patient is relatively asymptomatic from a cardiac perspective, appears to be fairly well-compensated from a congestive heart failure standpoint. Telemetry was reviewed. She does have fairly frequent ectopy, primarily in singlets and couplets and bigeminy pattern. No runs of ventricular tachycardia. She has been asymptomatic with this. Electrocardiogram shows no significant ischemic changes. Will follow-up with a 2-D echocardiogram to re-document her ejection fraction. She was initiated on a low-dose beta teresa. Will also obtain a stress test to rule out ischemic etiology. If that is negative she will be continued on optimal medical therapy and may potentially be an ICD candidate. Will have to reevaluate prior discharge and follow-up as an outpatient. Also would consider possible outpatient monitoring with an event monitor to see if she has any further ectopy. If work-up is essentially negative and her ejection fraction is still low she will likely get a LifeVest during the time of optimal medical therapy since when she initially presented she was not on an LUIS inhibitor or beta teresa as part of her medical regimen. We will probably send her out in a LifeVest. MD AGUILA Mauricio/RUDDY /8:56 AM /9:40 AM
[2017-02-07] MEDS: cefTRIAXone INJ 1,000 MG in SODIUM CHLORIDE 0.9% INJ 100 ML IV SCH (13:01)
[2017-02-07] MEDS ORDERED: REGADENOSON INJ 0.4 MG/5 ML SYR ONE (14:52)
--- NOTE | 2017-02-07 16:23 | RADRPT ---
EXAM DATE/TIME: 02/07/2017 14:17 [facility] COMPARISON: No previous studies available for comparison. INDICATIONS : Cardiomyopathy. Angina. Congestive heart failure. DOSE: 26.1 mCi Tc99m Myoview at stress. 10.0 mCi Tc99m Myoview at rest. 0.4 mg Lexiscan STRESS SYMPTOMS: Tired legs. EJECTION FRACTION: 21% MEDICAL HISTORY : Hypertension. Diabetes mellitus type 2. Asthma. SURGICAL HISTORY : Tubal ligation. Hysterectomy. section. ENCOUNTER: Initial ACUITY: 1 day PAIN SCALE: 2/10 LOCATION: Bilateral chest TECHNIQUE: The patient underwent pharmacologic stress with infusion of prescribed dose. Continuous ECG tracing was monitored during stress. Gated SPECT imaging was performed after stress and conventional SPECT i maging was performed at rest. The examination was performed on a SPECT/CT scanner, both attenuation and non-corrected datasets were reviewed. FINDINGS: DISTRIBUTION: The maximum perfused segment at stress is in the posterior basal wall. PERFUSION STUDY: There is moderately diminished relative perfusion to the low anterior wall and cardiac apex. No evide nce of redistribution. GATED STUDY: Prominent left ventricular chamber enlargement with global hypokinesis. CONCLUSION: Severe LV dysfunction. Fixed anterior and apical perfusion abnormalities RISK CATEGORY: High (>3% Annual Mortality Rate) Juan Will MD on February 07, 2017 at 16:18 Board Certified Radiologist. This report was verified electronically.
[2017-02-07] MEDS ORDERED: LISINOPRIL 5 MG TAB PO ONE (17:00)
[2017-02-07] MEDS ORDERED: DEFIB EXTERNAL (19:35)
[2017-02-08] VITALS (10 sets, daily range): BP systolic 130–145; BP diastolic 68–98; PULSE 90–100; RESP 18–20; TEMP 98–99.6; O2SAT 93–100
[2017-02-08] MEDS: ALBUTEROL SULFATE 90 MCG/ACT HFA 18 GM INHALER INH PRN ×2 (00:21→09:42)
[2017-02-08] MEDS: HEPARIN SODIUM - SQ 10,000 UNITS/ML VIAL SQ SCH ×2 (02:59→15:40)
[2017-02-08] MEDS: INSULIN ASPART SUPPLEMENTAL SCALE SQ SCH ×5 (05:34→21:00)
[2017-02-08] MEDS: ATORVASTATIN 10 MG TAB PO SCH (08:34)
[2017-02-08] MEDS: GLIMEPIRIDE 4 MG TAB PO SCH (08:35)
[2017-02-08] MEDS: DIGOXIN 0.125 MG TAB PO SCH (08:35)
[2017-02-08] MEDS: LISINOPRIL 10 MG TAB PO SCH (08:35)
[2017-02-08] MEDS: SPIRONOLACTONE 25 MG TAB PO SCH (08:36)
[2017-02-08] MEDS: METOPROLOL TARTRATE 25 MG TAB PO SCH ×2 (08:36→22:03)
[2017-02-08] MEDS: ASPIRIN EC 81 MG TABEC PO SCH (08:36)
[2017-02-08] MEDS: SODIUM CHLORIDE 0.9% FLUSH 10 ML FLUSH IV FLUSH SCH ×2 (08:37→22:03)
--- NOTE | 2017-02-08 08:59 | HHI.PR ---
Subjective Subjective Remarks Awake alert Right flank pain improved but still persist Increase activity today Afebrile (Tiffanie Gary) Interval History patient seen and examined still nauseous urine culture: Klebsiella continue i/v antibiotics likely switch to po LVQ in am awaiting echo may need Life vest, if EF less than 30 % confirmed on Echo discussed with patient discussed with case management discussed with Tiffanie FROST given persistent nausea and ongoing cardiac work up, i will switch patient to inpatient. (Lorie Marquis MD) Review of Systems Constitutional Constitutional: Weakness (generalized) Constitutional Remarks 10 point ROS done positives noted (Tiffanie Gary) Pulmonary Respiratory: Shortness of Breath (low volumes) Pulmonary Remarks Decreased breath sounds in bases, cardiomegaly (Tiffanie Gary) Genitourinary Remarks Right flank pain (Tiffanie Gary) Psychiatric Psychiatric: Normal Mood (Tiffanie Gary) Vitals/Results Intake & Output 02/07/17 02/07/17 02/08/17 15:00 23:00 07:00 Intake Total 820 ml Balance 820 ml Intake Oral 120 ml IV Total 700 ml # Voids 2 Vital Signs Vital Signs Date Time Temp Pulse Resp B/P Pulse Ox O2 Delivery O2 Flow Rate FiO2 02/08/17 07:36 98.0 95 20 144/77 93 02/08/17 04:14 99.1 97 18 145/77 100 02/08/17 04:00 99 02/08/17 00:59 99.6 100 18 130/68 97 02/08/17 00:00 99 02/07/17 21:00 99 02/07/17 19:27 99.3 107 20 134/74 02/07/17 16:35 102 02/07/17 16:12 99.0 101 18 147/89 94 02/07/17 12:19 99.5 94 20 156/85 96 02/07/17 12:00 100 02/07/17 09:18 100 (Tiffanie Gary) CBC/BMP: 02/07/17 0632 02/07/17 0632 Lab Results Laboratory Tests Test 02/07/17 02/07/17 11:58 13:15 Troponin I 0.13 NG/ML Nasal Screen MRSA (PCR) MRSA NOT DETECTED (AbdirahmanTiffanie M. [employer] JUMPBASTING) Physical Exam General General Appearance: Well Developed, Well Nourished, No Acute Distress, Comfortable (Abdirahman,Tiffanie M. [employer]) Eyes Eye Exam: Pupils Equal, Pupils Reactive (Abdirahman,Tiffanie M. [employer]) Ears & Nose Ears & Nose Exam: Nasal Mucosa [place] (Abdirahman,Tiffanie M. [employer]) Throat Throat Exam: Oral Mucosa [place] & Moist ([place],Tiffanie M. [employer]) Neck Neck Exam: Neck Supple, Trachea Midline ([place],Tiffanie M. [employer]) Pulmonary Resp Exam: Crackles, Decreased Bases, Diminished Breath Sounds (Abdirahman,Tiffanie M. [employer]) Cardiology CV Exam: Arrhythmia, Tachycardia (Abdirahman,Tiffanie M. [employer]) Gastrointestinal/Abdomen GI Exam: Soft, Non-Tender, Non-Distended ([place],Tiffanie M. [employer]) Musculoskeletal MS Exam: Joints Intact (Abdirahman,Tiffanie M. [employer]) Integumentary Skin Exam: Warm, Dry ([place],Tiffanie M. [employer]) Extremeties Extremities Exam: No Edema, Pedal Pulses Palpable ([place],Tiffanie M. [employer]) Neurologic Neuro Exam: Alert, Awake, Oriented, Speech Clear, Moving All Extremities, No Focal Deficits (Abdirahman,Tiffanie M. [employer]) Psychiatric Psych Exam: Appropriate Responses ([place],Tiffanie M. [employer]) VTE Prophylaxis VTE Prophylaxis Device: SCDs ([place],Tiffanie M. [employer]) Assessment/Plan Problem List: (1) Pyelonephritis (2) CHF (congestive heart failure) (3) Hyperlipidemia (4) Cardiomyopathy (5) HTN (hypertension) (6) Diabetes 1.5, managed as type 2 Assessment/Plan Vital signs reviewed currently afebrile heart rate borderline sinus rhythm with some mild tachycardia with increased activity Labs reviewed hemoglobin stable at 10.6 no active blood loss noted, no BMP at 150, Pyelonephritis IV Rocephin, cultures gram-negative rods, pending CHARLENE Pain management, symptoms improved this a.m. although still has some lower right -sided flank pain nausea bowel regimen as needed Chronic congestive heart failure, probable diastolic dysfunction and cardiomyopathy Cardiomegaly noted on chest x-ray, compensated Diminished breath sounds in lower bases, but overall air volumes seen within normal ranges Monitor telemetry, heart rate between 95 and 100 at rest Denies any chest pain or shortness of breath Cardiology consult appreciate input Type 2 diabetes Accu-Cheks before meals and at bedtime with insulin therapy as needed Hypertension, stable Continue home medications Heparin 5000 units subcutaneous twice a day for DVT prophylaxis Increase activity and assess for symptom management Discharge planning probable a.m., need CHARLENE report and IV antibiotics until symptoms completely controlled D/W RN D/W Dr. Marquis, seen on her behalf D/W pt (Tiffanie Gary) Problem Qualifiers (1) CHF (congestive heart failure): Qualified Code: I50.22 - Chronic systolic congestive heart failure (2) Hyperlipidemia: Qualified Code: E78.5 - Hyperlipidemia, unspecified hyperlipidemia type (3) Cardiomyopathy: Qualified Code: I42.9 - Cardiomyopathy, unspecified type (4) HTN (hypertension): Qualified Code: I10 - Essential hypertension Tiffanie Gary Feb 08, 2017 08:59 Lorie Marquis MD Feb 08, 2017 11:51
[2017-02-08] MEDS ORDERED: LISINOPRIL 5 MG TAB PO SCH (09:00)
--- NOTE | 2017-02-08 10:13 | PD.CARD.PN ---
Subjective Subjective Remarks Denies CV complaints (Sundar Hoffmann) Objective Vital Signs / I&O Vital Signs Date Time Temp Pulse Resp B/P Pulse Ox O2 Delivery O2 Flow Rate FiO2 02/08/17 07:36 98.0 95 20 144/77 93 02/08/17 04:14 99.1 97 18 145/77 100 02/08/17 04:00 99 02/08/17 00:59 99.6 100 18 130/68 97 02/08/17 00:00 99 02/07/17 21:00 99 02/07/17 19:27 99.3 107 20 134/74 02/07/17 16:35 102 02/07/17 16:12 99.0 101 18 147/89 94 02/07/17 12:19 99.5 94 20 156/85 96 02/07/17 12:00 100 I/O 02/07/17 02/07/17 02/07/17 02/08/17 02/08/17 02/08/17 07:00 15:00 23:00 07:00 15:00 23:00 Intake Total 820 ml Balance 820 ml Intake Oral 120 ml IV Total 700 ml # Voids 2 Physical Exam GENERAL: Well-nourished, well-developed patient in no apparent distress. NECK: No JVD. No carotid bruit. CARDIOVASCULAR: Regularly irregular rhythm. S1/S2 no murmur, rub, or gallop. RESPIRATORY: No accessory muscle use. Clear to auscultation. Breath sounds equal bilaterally. GASTROINTESTINAL: Abdomen soft, non-tender, nondistended. MUSCULOSKELETAL: Extremities without clubbing, cyanosis, or edema. Laboratory Laboratory Tests Test 02/07/17 02/07/17 11:58 13:15 Troponin I 0.13 NG/ML Nasal Screen MRSA (PCR) MRSA NOT DETECTED (Sundar Hoffmann) Assessment and Plan Problem List: (1) Cardiomyopathy (2) CHF (congestive heart failure) (3) Hyperlipidemia (4) HTN (hypertension) Assessment and Plan cardiomyopathy - SPECT showed no ischemia, 2D echo is pending. She is on a good medical regimen. Likely to require Life Vest CHF - well compensated HTN fairly controlled (Sundar Hoffmann) Assessment and Plan reviewed echo bedside. EF reduced similar to SPECT. continue guideline directed medical therapy. LifeVest DC planning. OK from cardio standpoint for DC will sign off call with further questions (Murali Tamayo MD) Problem Qualifiers (1) Cardiomyopathy: Qualified Code: I42.9 - Cardiomyopathy, unspecified type (2) CHF (congestive heart failure): Qualified Code: I50.22 - Chronic systolic congestive heart failure (3) Hyperlipidemia: Qualified Code: E78.5 - Hyperlipidemia, unspecified hyperlipidemia type (4) HTN (hypertension): Qualified Code: I10 - Essential hypertension Sundar Hoffmann Feb 08, 2017 10:13 Murali Tamayo MD Feb 08, 2017 14:41
[2017-02-08] MEDS: oxyCODONE/ACETAMINOPHEN 5 MG/325 MG TAB PO PRN ×2 (12:01→18:34)
[2017-02-08] MEDS: cefTRIAXone INJ 1,000 MG in SODIUM CHLORIDE 0.9% INJ 100 ML IV SCH (12:54)
--- NOTE | 2017-02-08 18:08 | ECHRPT ---
Indication: HEART FAILURE CONCLUSIONS Moderately dilated left ventricle. Wall thickness is measured at the upper limits of normal. The left ventricular systolic function is severely reduced with an estimated ejection fraction in th e range of 25-30%. There is global left ventricular dysfunction. The left atrial size is cmfc-[id number] dilated. Mild thickening of the mitral valve leaflets. Vbks-mp-weqfgjhf mitral valve regurgitation. Mild mitral annular calcification. No mitral valve stenosis. Structurally normal tricuspid valve. There is mild tricuspid valve regurgitation. There is estimated mild pulmonary hypertension present (range 40-50 mmHg). BP: / HR: Rhythm: Sinus MEASUREMENTS (Male / Female) Normal Values Technical Quality:Fair 2D ECHO LV Diastolic Diameter PLAX 6.5 cm 4.2 - 5.9 / 3.9 - 5.3 cm LV Systolic Diameter PLAX 5.4 cm IVS Diastolic Thickness 1.0 cm 0.6 - 1.0 / 0.6 - 0.9 cm LVPW Diastolic Thickness 0.9 cm 0.6 - 1.0 / 0.6 - 0.9 cm LV Relative Wall Thickness 0.3 LVOT Diameter 2.1 cm Aortic Root Diameter 3.5 cm LA Systolic Diameter LX 2.7 cm 3.0 - 4.0 / 2.7 - 3.8 cm M-MODE AV Cusp Separation MM 1.8 cm DOPPLER AV Peak Velocity 134.0 cm/s AV Peak Gradient 7.2 mmHg AV Mean Gradient 5.0 mmHg AV Velocity Time Integral 23.0 cm LVOT Peak Velocity 83.5 cm/s LVOT Peak Gradient 2.8 mmHg LVOT Velocity Time Integral 14.1 cm AV Area Cont Eq vti 2.1 cm AV Area Cont Eq pk 2.2 cm Mitral E Point Velocity 108.5 cm/s Mitral A Point Velocity 94.3 cm/s Mitral E to A Ratio 1.2 LV E' Lateral Velocity 6.7 cm/s Mitral E to LV E' Lateral Ratio 16.1 LV E' Septal Velocity 7.6 cm/s Mitral E to LV E' Septal Ratio 14.3 TR Peak Velocity 309.0 cm/s TR Peak Gradient 38.2 mmHg PV Peak Velocity 86.5 cm/s PV Peak Gradient 3.0 mmHg FINDINGS LEFT VENTRICLE Moderately dilated left ventricle. Wall thickness is measured at the upper limits of normal. The left ventricular systolic function is severely reduced with an estimated ejection fraction in th e range of 25-30%. There is global left ventricular dysfunction. RIGHT VENTRICLE Normal right ventricular size and systolic function. LEFT ATRIUM The left atrial size is [id number]-fs-dewteluelw dilated. RIGHT ATRIUM The right atrial size is normal. ATRIAL SEPTUM Normal atrial septal thickness without atrial level shunting by limited color doppler interrogation. AORTA The aortic root and proximal ascending aorta are normal in size on limited imaging. MITRAL VALVE Mild thickening of the mitral valve leaflets. Psaq-kh-iluvmyzf mitral valve regurgitation. Mild mitral annular calcification. No mitral valve stenosis. AORTIC VALVE Trileaflet aortic valve. No aortic valve stenosis or regurgitation. TRICUSPID VALVE Structurally normal tricuspid valve. There is mild tricuspid valve regurgitation. There is estimated mild pulmonary hypertension present (range 40-50 mmHg). PULMONARY VALVE The pulmonary valve is not well visualized. VESSELS The inferior vena cava is normal in size. PERICARDIUM Trivial pericardial effusion. Murali Tamayo MD, FACC (Electronically Signed) Final Date:08 February 2017 18:07
[2017-02-09 00:14] VITALS: BP 163/88; PULSE 102; RESP 18; TEMP 99.7; O2SAT 90
[2017-02-09 04:37] VITALS: BP 138/74; PULSE 91; RESP 16; TEMP 99; O2SAT 93
[2017-02-09] MEDS: HEPARIN SODIUM - SQ 10,000 UNITS/ML VIAL SQ SCH (05:17)
[2017-02-09] MEDS: INSULIN ASPART SUPPLEMENTAL SCALE SQ SCH (07:00)
[2017-02-09 08:00] VITALS: BP 143/86; PULSE 86; RESP 16; TEMP 97.4; O2SAT 95
--- NOTE | 2017-02-09 09:28 | HHI.PR ---
Subjective Subjective Remarks Sleeping but arouses well to verbal stimuli Left flank pain improved , still has some soreness LifeVest on, being followed per cardiology, denies any chest pain Afebrile (Tiffanie Gary) Review of Systems Constitutional Constitutional: Weakness (generalized) Constitutional Remarks 10 point ROS done positives noted (Tiffanie Gary) Pulmonary Respiratory: Shortness of Breath (more controlled today, none noted at rest) Pulmonary Remarks Decreased breath sounds in bases, cardiomegaly (Tiffanie Gary) Genitourinary Remarks Right flank pain (Tiffanie Gary) Psychiatric Psychiatric: Normal Mood (Tiffanie Gary) Vitals/Results Intake & Output 02/08/17 02/08/17 02/09/17 15:00 23:00 07:00 Intake Total 340 ml 200 ml Balance 340 ml 200 ml Intake Oral 240 ml 200 ml IV Total 100 ml # Voids 2 Vital Signs Vital Signs Date Time Temp Pulse Resp B/P Pulse Ox O2 Delivery O2 Flow Rate FiO2 02/09/17 08:00 97.4 86 16 143/86 95 02/09/17 04:37 99.0 91 16 138/74 93 02/09/17 00:14 99.7 102 18 163/88 90 02/08/17 21:59 18 02/08/17 19:52 98.2 93 18 139/74 96 02/08/17 17:09 98.4 96 20 139/98 94 02/08/17 16:10 90 02/08/17 12:12 93 (Tiffanie Gary) CBC/BMP: 02/07/17 0632 02/07/17 0632 Imaging Remarks Last Impressions Myocardial Perfusion Scan Nuc Med 02/07/17 0000 Signed Impressions: Service Date/Time: Tuesday, February 07, 2017 14:17 - CONCLUSION: Severe LV dysfunction. Fixed anterior and apical perfusion abnormalities RISK CATEGORY: High (>3%% Annual Mortality Rate) Juan Will MD Chest X-Ray 02/07/17 0000 Signed Impressions: Service Date/Time: Tuesday, February 07, 2017 08:22 - CONCLUSION: Compensated cardiomegaly otherwise negative Leonard Figueroa MD FACR Abdomen/Pelvis CT 02/06/17 1030 Signed Impressions: Service Date/Time: Monday, February 06, 2017 12:13 - CONCLUSION: 1. Abnormal diminished enhancement of the left kidney could represent pyelonephritis in the appropriate clinical setting or possibly an area of infarction. 2. Fatty liver. Shreyas Ng MD (Abdirahman,Tiffanie M. DUTY MANAGER) Physical Exam General General Appearance: Well Developed, Well Nourished, No Acute Distress, Comfortable ([place],Tiffanie M. DUTY MANAGER) Eyes Eye Exam: Pupils Equal, Pupils Reactive (Abdirahman,Tiffanie M. DUTY MANAGER) Ears & Nose Ears & Nose Exam: Nasal Mucosa Lohman (Abdirahman,Tiffanie M. DUTY MANAGER) Throat Throat Exam: Oral Mucosa Lohman & Moist ([place],Tiffanie M. DUTY MANAGER) Neck Neck Exam: Neck Supple, Trachea Midline (Abdirahman,Tiffanie M. DUTY MANAGER) Pulmonary Resp Exam: Crackles, Decreased Bases, Diminished Breath Sounds (Abdirahman,Tiffanie M. DUTY MANAGER) Cardiology CV Exam: Arrhythmia, Tachycardia (Abdirahman,Tiffanie M. DUTY MANAGER) Gastrointestinal/Abdomen GI Exam: Soft, Non-Tender, Non-Distended ([place],Tiffanie M. DUTY MANAGER) Musculoskeletal MS Exam: Joints Intact ([place],Tiffanie M. DUTY MANAGER) Integumentary Skin Exam: Warm, Dry ([place],Tiffanie M. DUTY MANAGER) Extremeties Extremities Exam: No Edema, Pedal Pulses Palpable ([place],Tiffanie M. DUTY MANAGER) Neurologic Neuro Exam: Alert, Awake, Oriented, Speech Clear, Moving All Extremities, No Focal Deficits (Abdirahman,Tiffanie M. DUTY MANAGER) Psychiatric Psych Exam: Appropriate Responses ([place],Tiffanie M. DUTY MANAGER) VTE Prophylaxis VTE Prophylaxis Device: SCDs (Abdirahman,Tiffanie M. DUTY MANAGER) Assessment/Plan Problem List: (1) Pyelonephritis (2) CHF (congestive heart failure) (3) Hyperlipidemia (4) Cardiomyopathy (5) HTN (hypertension) (6) Diabetes 1.5, managed as type 2 Assessment/Plan Vital signs reviewed, afebrile heart rate anxiety around in the 90s Labs reviewed, troponin noted 0.13, Bowel regimen, patient notes some constipation, medical management today Pyelonephritis IV Rocephin, cultures gram-negative rods, Klebsiella pneumo culture Pain management, symptoms improved this a.m. although still has some lower left- sided flank pain Chronic congestive heart failure, probable diastolic dysfunction and cardiomyopathy nonischemic Cardiomegaly noted on chest x-ray, compensated Diminished breath sounds in lower bases, but overall air volumes seen within normal ranges Telemetry LifeVest placed on patient with instructions Activity monitored encouraged to ambulate around and nichols Cardiology consult appreciate input, will follow up as outpatient Type 2 diabetes Accu-Cheks before meals and at bedtime with insulin therapy as needed Hypertension, stable Continue home medications Heparin 5000 units subcutaneous twice a day for DVT prophylaxis Increase activity and assess for symptom management Discharge planning possible today, low-grade fever improved 99 7 D/W RN D/W Dr. Marquis, seen on her behalf D/W pt (Tiffanie Gary) Assessment/Plan patient seen and examined tolerating diet life vest delivered cleared by cardiology for discharge ok to d/c home on PO Levaquin until 02/20 plan of care discussed with patient plan of care discussed with Tiffanie FROST (Lorie Marquis MD) Problem Qualifiers (1) CHF (congestive heart failure): Qualified Code: I50.22 - Chronic systolic congestive heart failure (2) Hyperlipidemia: Qualified Code: E78.5 - Hyperlipidemia, unspecified hyperlipidemia type (3) Cardiomyopathy: Qualified Code: I42.9 - Cardiomyopathy, unspecified type (4) HTN (hypertension): Qualified Code: I10 - Essential hypertension Tiffanie Gary Feb 09, 2017 09:28 Lorie Marquis MD Feb 09, 2017 10:59
[2017-02-09 10:30] LABS: AUTOMATED NEUTROPHIL # 3.4 TH/MM3 (1.8-7.7); BASOPHIL # 0.1 TH/MM3 (0-0.2); BASOPHIL % 1.3 % (0.0-2.0); BICARBONATE 23.1 MEQ/L (21.0-32.0); EOSINOPHIL % 0.7 % (0.0-4.0); HEMATOCRIT 32.9 % (35.0-46.0); HEMO FLAGS DIFF FINAL; LYMPH % 33.2 % (9.0-44.0); LYMPHOCYTE # 2.1 TH/MM3 (1.0-4.8); MEAN CELL VOLUME 72.6 FL (80.0-100.0); MEAN CORPUSCULAR HEMOGLOBIN 23.4 PG (27.0-34.0); MEAN CORPUSCULAR HGB CONC 32.3 % (32.0-36.0); NEUT % 54.8 % (16.0-70.0); PLATELET COUNT 203 TH/MM3 (150-450); POTASSIUM 3.7 MEQ/L (3.5-5.1); RED BLOOD COUNT 4.53 MIL/MM3 (4.00-5.30); RED CELL DISTRIBUTION WIDTH 13.8 % (11.6-17.2)
[2017-02-09 10:32] LABS: WHITE BLOOD COUNT 6.3 TH/MM3 (4.0-11.0)
[2017-02-09] MEDS ORDERED: LIPI10TA PO ×2 (11:04→11:09)
[2017-02-09] MEDS ORDERED: METO25TA3 PO ×2 (11:04→11:09)
[2017-02-09] MEDS ORDERED: ASPI-99 PO ×2 (11:04→11:09)
[2017-02-09] MEDS ORDERED: LISI10TA3 PO ×2 (11:04→11:09)
[2017-02-09] MEDS ORDERED: SPIR25 PO ×2 (11:04→11:09)
[2017-02-09] MEDS ORDERED: LEVO750T3 PO ×2 (11:05→11:10)
[2017-02-09 12:00] VITALS: BP 158/81; PULSE 95; RESP 18; TEMP 96.3; O2SAT 96
[2017-02-09] MEDS: SODIUM CHLORIDE 0.9% FLUSH 10 ML FLUSH IV FLUSH SCH (12:24)
[2017-02-09] MEDS: GLIMEPIRIDE 4 MG TAB PO SCH (12:24)
[2017-02-09] MEDS: LISINOPRIL 10 MG TAB PO SCH (12:25)
[2017-02-09] MEDS: DIGOXIN 0.125 MG TAB PO SCH (12:25)
[2017-02-09] MEDS: ASPIRIN EC 81 MG TABEC PO SCH (12:25)
[2017-02-09] MEDS: METOPROLOL TARTRATE 25 MG TAB PO SCH (12:25)
[2017-02-09] MEDS: ATORVASTATIN 10 MG TAB PO SCH (12:25)
[2017-02-09] MEDS: SPIRONOLACTONE 25 MG TAB PO SCH (12:29)
== END 2017-02-09 13:24 | disposition home or self-care (01) | DRG 690 ==
LOC: NEPE 10:01 → NEDA 14:30 → NEPGCP 15:43 → OBSVTOIN 02-08 11:52
PROVIDERS: ADMIT Internal Medicine; ATTEND Internal Medicine
DX: N12 Tubulo-interstitial nephritis, not specified as acute or chronic (principal); I11.0 Hypertensive heart disease with heart failure; I42.9 Cardiomyopathy, unspecified; I50.22 Chronic systolic (congestive) heart failure; E11.42 Type 2 diabetes mellitus with diabetic polyneuropathy; E78.5 Hyperlipidemia, unspecified; I25.10 Atherosclerotic heart disease of native coronary artery without angina pectoris; I49.3 Ventricular premature depolarization; J45.909 Unspecified asthma, uncomplicated; K59.00 Constipation, unspecified; F32.9 Major depressive disorder, single episode, unspecified; R00.0 Tachycardia, unspecified; B96.1 Klebsiella pneumoniae [K. pneumoniae] as the cause of diseases classified elsewhere
CPT/HCPCS: 71010; 74177; 78452; 80048; 80076; 81001; 82948; 83690; 83735; 83880; 84484; 85025; 85610; 85730; 87077; 87086; 87186; 87641; 93005; 93017; 93306; A9502; J0696; J1644; J1815; J1885; J2270; J2405; J2785; J7030; Q9967

== ENCOUNTER 2017-02-27 06:59 | Observation (INO) | payer OTHER ==
[~2017-02-27] VITALS: Ht 180.3 cm; Wt 116.0 kg
[2017-02-27] VITALS (12 sets, daily range): BP systolic 126–150; BP diastolic 73–86; PULSE 75–93; RESP 16–18; TEMP 97.6–98.6; O2SAT 99–100
[~2017-02-27 06:59] MED LIST changes: +ASPI-99 PO; +DEFIB EXTERNAL; -DOXY100C PO; +GABA300C5 PO; +LEVO750T3 PO; +LIPI10TA PO; +LISI10TA3 PO; +METO25TA3 PO; +SPIR25 PO; -SPIR25TA PO
--- NOTE | 2017-02-27 07:29 | PD ---
HPI Chief Complaint: Chest Pain Time Seen by Provider: 07:25 Travel History International Travel<30 days: No Contact w/Intl Traveler<30days: No Traveled to known affect area: No History of Present Illness HPI 51-year-old female with history of hypertension chin, CAD, CHF, A. fib, diabetes , recently admitted for CHF exacerbation, is supposed to be following up with Dr. dailey tomorrow, presents to the ER today for substernal 6 out of 10 chest pains with shortness of breath and coughing. She denies any fevers, vomiting, diarrhea, or any other symptoms. Modifying Factors: None Associated Signs & Symptoms: Chest pains, shortness of breath Risk Factors: CHF history, cardiac history PFSH Past Medical History Hx Anticoagulant Therapy: Yes (ASA) Asthma: Yes Atrial Fibrillation: Yes Autoimmune Disease: No Blood Disorders: No Anxiety: No Depression: No Heart Rhythm Problems: No Cancer: No Cardiovascular Problems: Yes High Cholesterol: Yes Chemotherapy: No Chest Pain: No Congestive Heart Failure: Yes COPD: No Cerebrovascular Accident: No Coronary Artery Disease: Yes Diabetes: Yes Patient Takes Glucophage: No Diminished Hearing: No Endocrine: Yes Gastrointestinal Disorders: Yes Genitourinary: No Headaches: Yes Hepatitis: No Hiatal Hernia: No Hypertension: Yes Immune Disorder: No Musculoskeletal: No Neurologic: No Psychiatric: No Reproductive: Yes (hysterectomy & tubal ligation) Respiratory: Yes (HX OF SINUS INFECTIONS) Radiation Therapy: No Seizures: No Sickle Cell Disease: No Sleep Apnea: No Thyroid Disease: No Tetanus Vaccination: > 5 Years Influenza Vaccination: Yes PNEUMOCCOCAL Vaccine (Year): 2 ?: Not Menopausal: Yes : 2 Para: 2 Past Surgical History AICD: No Gynecologic Surgery: Yes (C SECTION, LAP SUPRACERVICAL HYSTERECTOMY 2012) Hysterectomy: Yes Joint Replacement: No Pacemaker: No Other Surgery: Yes Social History Alcohol Use: No (PT DENIES ) Tobacco Use: No (PT DENIES) Substance Use: No (PT DENIES) Allergies-Medications (Allergen,Severity, Reaction): Coded Allergies: Sulfa (Verified Allergy, Severe, Itching, 02/27/17) SEVERE ITCHING Glucophage (Verified Adverse Reaction, Severe, SEVERE DIARRHEA, 02/27/17) *MDRO Multi-Drug Resistant Organism (Verified Adverse Reaction, Unknown, Cleared - 02/09/17, 02/27/17) Cleared: MRSA screens negative on 02/07/17 & 02/09/17 MRSA (finger) - 05/19/11 Reported Meds & Prescriptions Reported Meds & Active Scripts Active Aldactone (Spironolactone) 25 Mg Tab 25 Mg PO DAILY 30 Days Lipitor (Atorvastatin Calcium) 10 Mg Tab 10 Mg PO DAILY 30 Days Adult Aspirin EC Low Strength (Aspirin) 81 Mg Tabec 81 Mg PO DAILY 30 Days Metoprolol Tartrate 25 Mg Tab 25 Mg PO Q12HR 30 Days Proair Hfa 8.5 GM Inh (Albuterol Sulfate) 90 Mcg/Act Aer 2 Puff INH Q4-6H PRN 108 mcg/actuation Reported Gabapentin 300 Mg Cap 300 Mg PO BID Humulin R Inj (Insulin Human Regular) 1,000 Unit/10 Ml Vial 14 Units SQ HS Digoxin 0.125 Mg Tab 0.125 Mg PO DAILY Glimepiride 1 Mg Tab 8 Mg PO DAILY Take with breakfast or first main meal Norvasc (Amlodipine Besylate) 5 Mg Tab 5 Mg PO DAILY Review of Systems Except as stated in HPI: all other systems reviewed are Neg Physical Exam Narrative GENERAL: Well-developed middle age -[place] female patient currently in mild distress. Awake and oriented 3. SKIN: Focused skin assessment warm/dry. HEAD: Atraumatic. Normocephalic. EYES: Pupils equal and round. No scleral icterus. No injection or drainage. ENT: No nasal bleeding or discharge. Mucous membranes pink and moist. NECK: Trachea midline. No JVD. CARDIOVASCULAR: Regular rate and rhythm. No murmur appreciated. RESPIRATORY: No accessory muscle use. Clear to auscultation. Breath sounds equal bilaterally. GASTROINTESTINAL: Abdomen soft, non-tender, nondistended. Hepatic and splenic margins not palpable. MUSCULOSKELETAL: No obvious deformities. No clubbing. No cyanosis. No edema. NEUROLOGICAL: Awake and alert. No obvious cranial nerve deficits. Motor grossly within normal limits. Normal speech. PSYCHIATRIC: Appropriate mood and affect; insight and judgment normal. Data Data Last Documented VS Vital Signs Date Time Temp Pulse Resp B/P Pulse Ox O2 Delivery O2 Flow Rate FiO2 02/27/17 08:29 97.9 81 16 132/76 100 Room Air Orders Electrocardiogram (02/27/17 07:20) Ckmb (Isoenzyme) Profile (02/27/17 07:20) Complete Blood Count With Diff (02/27/17 07:20) Comprehensive Metabolic Panel (02/27/17 07:20) Digoxin (02/27/17 07:20) Magnesium (Mg) (02/27/17 07:20) Prothrombin Time / Inr (Pt) (02/27/17 07:20) Act Partial Throm Time (Ptt) (02/27/17 07:20) Troponin I (02/27/17 07:20) Chest, Single Ap (02/27/17 07:20) Ecg Monitoring (02/27/17 07:20) Bilateral Bp Monitoring (02/27/17 07:20) Iv Access Insert/Monitor (02/27/17 07:20) Oximetry (02/27/17 07:20) Oxygen Administration (02/27/17 07:20) Sodium Chloride 0.9% Flush (Ns Flush) (02/27/17 07:30) B-Type Natriuretic Peptide (02/27/17 07:25) CKMB (02/27/17 07:10) CKMB% (02/27/17 07:10) Labs Laboratory Tests Test 02/27/17 07:10 White Blood Count 5.3 TH/MM3 Red Blood Count 4.69 MIL/MM3 Hemoglobin 10.7 GM/DL Hematocrit 34.6 % Mean Corpuscular Volume 73.7 FL Mean Corpuscular Hemoglobin 22.8 PG Mean Corpuscular Hemoglobin 30.9 % Concent Red Cell Distribution Width 14.4 % Platelet Count 183 TH/MM3 Mean Platelet Volume 8.8 FL Neutrophils (%) (Auto) 48.3 % Lymphocytes (%) (Auto) 41.9 % Monocytes (%) (Auto) 6.9 % Eosinophils (%) (Auto) 2.5 % Basophils (%) (Auto) 0.4 % Neutrophils # (Auto) 2.6 TH/MM3 Lymphocytes # (Auto) 2.2 TH/MM3 Monocytes # (Auto) 0.4 TH/MM3 Eosinophils # (Auto) 0.1 TH/MM3 Basophils # (Auto) 0.0 TH/MM3 CBC Comment DIFF FINAL Differential Comment Prothrombin Time 12.3 SEC Prothromb Time International 1.1 RATIO Ratio Activated Partial 27.1 SEC Thromboplast Time Sodium Level 139 MEQ/L Potassium Level 3.8 MEQ/L Chloride Level 104 MEQ/L Carbon Dioxide Level 26.4 MEQ/L Anion Gap 9 MEQ/L Blood Urea Nitrogen 11 MG/DL Creatinine 0.80 MG/DL Estimat Glomerular Filtration 91 ML/MIN Rate Random Glucose 287 MG/DL Calcium Level 8.4 MG/DL Magnesium Level 1.8 MG/DL Total Bilirubin 0.3 MG/DL Aspartate Amino Transf 9 U/L (AST/SGOT) Alanine Aminotransferase 16 U/L (ALT/SGPT) Alkaline Phosphatase 111 U/L Total Creatine Kinase 105 U/L Creatine Kinase MB 1.8 NG/ML Troponin I 0.11 NG/ML B-Type Natriuretic Peptide 71 PG/ML Total Protein 7.2 GM/DL Albumin 3.2 GM/DL Digoxin Level LESS THAN 0.1 NG/ML MDM Medical Decision Making Medical Screen Exam Complete: Yes Emergency Medical Condition: Yes Medical Record Reviewed: Yes Interpretation(s) EKG shows normal sinus rhythm at a rate of 80 bpm with LVH. No signs of acute ST-T elevations or depressions. Laboratory Tests Test 02/27/17 07:10 Hemoglobin 10.7 GM/DL (11.6-15.3) Hematocrit 34.6 % (35.0-46.0) Mean Corpuscular Volume 73.7 FL (80.0-100.0) Mean Corpuscular Hemoglobin 22.8 PG (27.0-34.0) Mean Corpuscular Hemoglobin 30.9 % Concent (32.0-36.0) Prothrombin Time 12.3 SEC (9.8-11.6) Random Glucose 287 MG/DL (74-106) Calcium Level 8.4 MG/DL (8.5-10.1) Aspartate Amino Transf 9 U/L (15-37) (AST/SGOT) Troponin I 0.11 NG/ML (0.02-0.05) Albumin 3.2 GM/DL (3.4-5.0) Digoxin Level LESS THAN 0.1 NG/ML (0.8-2.0) Last 24 hours Impressions Chest X-Ray 02/27/17 0720 Signed Impressions: Service Date/Time: Monday, February 27, 2017 07:15 - CONCLUSION: No acute disease. Broderick Beck MD Differential Diagnosis Chest discomfort, shortness of breathdysrhythmias versus pneumonia versus CHF versus ACS Narrative Course Chest x-ray, EKG did not show any signs of acute processes. She has LVH on EKG. Her troponin is elevated at 0.11. She has previous elevations but considering the current chest pains, my plan would be to admit her for further evaluation. She had received aspirin and nitroglycerin from EMS with some improvement in chest pains. At this point, case was discussed with Dr. Dowling for admission. Diagnosis Primary Impression: Chest pain Additional Impression: Elevated troponin Admitting Information Admitting Physician Requests: Admit Grabiel Parr MD Feb 27, 2017 07:29
[2017-02-27] MEDS ORDERED: SODIUM CHLORIDE 0.9% FLUSH 10 ML FLUSH IVF PRN (07:30)
--- NOTE | 2017-02-27 07:45 | RADRPT ---
EXAM DATE/TIME: 02/27/2017 07:15 [facility] COMPARISON: CHEST SINGLE AP, February 07, 2017, 8:22. INDICATIONS : Chest pain. MEDICAL HISTORY : None. SURGICAL HISTORY : None. ENCOUNTER: Initial ACUITY: 1 day PAIN SCORE: 6/10 LOCATION: Bilateral chest FINDINGS: A single view of the chest demonstrates the lungs to be symmetrically aerated without evidence of mas s, infiltrate or effusion. The heart size remains at the upper limits of normal. Osseous structures are intact. CONCLUSION: No acute disease. Broderick Beck MD on February 27, 2017 at 7:43 Board Certified Radiologist. This report was verified electronically.
[2017-02-27 08:03] LABS: AUTOMATED NEUTROPHIL # 2.6 TH/MM3 (1.8-7.7); BASOPHIL % 0.4 % (0.0-2.0); EOSINOPHIL # 0.1 TH/MM3 (0-0.4); EOSINOPHIL % 2.5 % (0.0-4.0); HEMATOCRIT 34.6 % (35.0-46.0); HEMO FLAGS DIFF FINAL; LYMPH % 41.9 % (9.0-44.0); LYMPHOCYTE # 2.2 TH/MM3 (1.0-4.8); MEAN CELL VOLUME 73.7 FL (80.0-100.0); MEAN CORPUSCULAR HEMOGLOBIN 22.8 PG (27.0-34.0); MEAN CORPUSCULAR HGB CONC 30.9 % (32.0-36.0); MONO % 6.9 % (0.0-8.0); NEUT % 48.3 % (16.0-70.0); PLATELET COUNT 183 TH/MM3 (150-450); RED BLOOD COUNT 4.69 MIL/MM3 (4.00-5.30); RED CELL DISTRIBUTION WIDTH 14.4 % (11.6-17.2); WHITE BLOOD COUNT 5.3 TH/MM3 (4.0-11.0)
[2017-02-27 08:12] LABS: APTT (PATIENT) 27.1 SEC (24.3-30.1); INTERNATIONAL NORMALIZED RATIO 1.1 RATIO; PROTHROMBIN TIME - PATIENT 12.3 SEC (9.8-11.6)
[2017-02-27 08:22] LABS: ALT (GPT) 16 U/L (10-53); ANION GAP 9 MEQ/L (5-15); AST (GOT) 9 U/L (15-37); BICARBONATE 26.4 MEQ/L (21.0-32.0); BLOOD UREA NITROGEN 11 MG/DL (7-18); CHLORIDE 104 MEQ/L (98-107); GLOMERULAR FILTRATION RATE 91 ML/MIN (>89); MAGNESIUM 1.8 MG/DL (1.5-2.5); POTASSIUM 3.8 MEQ/L (3.5-5.1); SODIUM (NA) 139 MEQ/L (136-145)
[2017-02-27 08:36] LABS: ALKALINE PHOSPHATASE 111 U/L (45-117); CREATINE KINASE 105 U/L (26-192); DIGOXIN LESS THAN 0.1 NG/ML (0.8-2.0); TOTAL BILIRUBIN ADULT 0.3 MG/DL (0.2-1.0)
[2017-02-27 08:50] LABS: CKMB 1.8 NG/ML (0.5-3.6)
[2017-02-27] MEDS ORDERED: ALBUTEROL SULFATE 90 MCG/ACT HFA 18 GM INHALER INH PRN (09:30)
[2017-02-27] MEDS ORDERED: LACTULOSE SYRUP 20 GM/30 ML CUP PO PRN (09:30)
[2017-02-27] MEDS ORDERED: SENNOSIDES 8.6 MG TAB PO PRN (09:30)
[2017-02-27] MEDS ORDERED: MAGNESIUM HYDROXIDE SUSP 30 ML CUP PO PRN (09:30)
[2017-02-27] MEDS ORDERED: ONDANSETRON HCL 4 MG/2 ML VIAL IVP PRN (09:30)
[2017-02-27] MEDS ORDERED: NALOXONE HCL 0.4 MG/ML AMP IV PRN (09:30)
[2017-02-27] MEDS ORDERED: BISACODYL 10 MG SUPP RECTAL PRN (09:30)
[2017-02-27] MEDS: HEPARIN SODIUM - SQ 10,000 UNITS/ML VIAL SQ SCH ×2 (09:46→21:16)
--- NOTE | 2017-02-27 10:26 | HHI.PR ---
Objective Objective Results - Vital Signs Date Time Temp Pulse Resp B/P Pulse Ox O2 Delivery O2 Flow Rate FiO2 02/27/17 10:09 97.6 75 16 137/79 100 02/27/17 09:55 97.9 81 16 138/81 100 02/27/17 08:29 97.9 81 16 132/76 100 Room Air 02/27/17 07:22 100 Room Air 02/27/17 07:22 16 100 Room Air 02/27/17 07:21 87 16 150/86 100 Room Air 144/83 02/27/17 07:02 89 16 100 Room Air 02/27/17 07:01 97.9 89 16 150/86 100 Result Diagram: 02/27/17 0710 02/27/17 0710 Physical Exam Physical Exam PHYSICAL EXAMINATION GENERAL: This is a well-developed, well-nourished female who appears to be in no acute distress. She is alert and awake, []. HEAD: Normocephalic without any lesion or mass noted. Facial features appear symmetric. OROPHARYNGEAL: Oropharynx without erythema or edema. NECK: Supple. No nuchal rigidity or lymphadenopathy. Trachea midline without deviation. CARDIAC: Regular rhythm, regular rate, S1 and S2 are heard. Murmur []; no gallops or rubs. LUNGS: Clear to auscultation bilaterally. [] wheeze, [] rhonchi or [] rale. No use of accessory muscles on inspiration or expiration. ABDOMEN: Soft, nontender, no organomegaly or masses. Bowel sounds are heard in all four quadrants. No rebound. No guarding. EXTREMITIES: [] edema. Pulses equal bilateral. [] cyanosis. NEUROLOGICAL: Patient mood and affect appropriate. No focal deficit SKIN:Warm and moist A/P Assessment and Plan [id number] chest pain, atypical DM 2, uncontrolled cough, Possible bronchitis dyspnea, hx of cardiomyopathy LE edema decreased UOP, check U/A and culture if needed. + troponin N&V X 1 yesterday Tiffanie Gary Feb 27, 2017 10:25
--- NOTE | 2017-02-27 11:22 | MH ---
cc: CAMELIA DELCID MD DATE OF ADMISSION: 02/27/2017 DATE OF : 1965 COMPLAINTS Cough, shortness of breath, chest pain, atypical. Travel in the last 30 days: None. HISTORY OF PRESENT ILLNESS This is a pleasant 51-year-old black female who has known coronary artery disease, CHF and other comorbidities. She was just in the hospital over the past few months for some of the same symptoms, chest pain, shortness of breath. She states her cough is one of her chief problems and her fatigue. The patient was wearing a life vest when she entered the hospital. The patient notes nausea and vomiting x1 yesterday but no further. Cough continues, her chest pain is left sided, appears to be sharp and increased with respiratory effort. She does have some mild soreness to touch but chiefly notes it hurts to take a deep breath. Her blood sugar on admission was 287 and she is a known diabetic. She also notes constipation. She had a bowel movement yesterday but states that it was very hard and firm and she is struggling with her bowel regimen at home. She was due to see her ctrs, Dr. Tamayo tomorrow but states that her chest pain was to the point that she felt like she needed to be evaluated. The patient also notes low urine output, states that it is not her norm and that she is having more decreased amounts and a dribbling affect. PAST MEDICAL HISTORY 1. Asthma. 2. Atrial fibrillation. 3. Aspirin for anticoagulant therapy. 4. Cardiovascular disease. 5. Coronary artery disease. 6. CHF. 7. Diabetes mellitus type II with some peripheral neuropathy. 8. Hyperlipidemia. 9. GERD. 10. GI disorders. 11. Headaches. 12. Hypertension. 13. History of sinus infections. 14. Bronchitis and viral illnesses. 15. Elevated troponin levels. 16. Recent pyelonephritis. 17. Atherosclerotic heart disease. 18. Cardiomyopathy. 19. The patient wears a life vest at home. PAST SURGICAL HISTORY 1. Tubal ligation. 2. . 3. Lap supracervical hysterectomy in 2012. ALLERGIES MDRO, MULTI-RESISTANT DRUG ORGANISMS, GLUCOPHAGE, SULFA. MEDICATION Reconciled medications include: 1. Aldactone. 2. Lipitor. 3. Aspirin. 4. Metoprolol. 5. Pro-Air. 6. Gabapentin. 7. Humulin-R per sliding scale and 14 units at h.s. 8. Digoxin. 9. Gliburide. 10. Norvasc. 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 No known alcohol, tobacco or illicit drug use. REVIEW OF SYSTEMS A 12-point review is obtained, the positives noted in HPI which include her shortness of breath, sharp chest pain increased with respiratory effort, cough, nausea, vomiting, constipation. The patient wears a life vest. Decreased urine output, lower extremity edema. Any other system mentioned, other systems negative or unremarkable. VITAL SIGNS: Temperature is 97.9, pulse 81, respirations 16, blood pressure is 138/81, was 150/86 on admission, O2 sat 100 currently on room air. PHYSICAL EXAMINATION GENERAL: Obese black female, looks to be her stated age, resting in the bed. She does look uncomfortable with her chest pain. SKIN: [place] mucous membranes, warm and dry. HEENT: Atraumatic, normocephalic. PERRLA at 2 to 3. Mucous membranes are pink and moist. No scleral icterus. NECK: Neck is supple. CARDIOVASCULAR: S1-S2, rhythm is currently regular. She does possibly have a diastolic murmur, very soft. She does have 1+ edema in her right lower extremity and a trace of edema in her left lower extremity. Pulses are intact. EXTREMITIES: Warm. PULMONARY: Diminished and decreased breath sounds noted, predominantly in her bases. GI: Abdomen soft, taut, nontender, mild distension. Bowel sounds are active. MUSCULOSKELETAL: Moves extremities with purpose. No obvious deformities, noted, her lower extremity edema, right is greater than the left 1+. NEUROLOGIC: She is awake, alert, oriented, mildly anxious over her current condition. Speech is clear. PSYCHIATRIC: Mood and affect appropriate for her current condition. Insight and judgment is normal. DIAGNOSTIC DATA WBC count 5.3, RBC 4.69, hemoglobin 10.7, hematocrit 34.6, platelet count 183, diff is normal. Coag PT/INR 1.1. Chemistry sodium 139, potassium 3.8, chloride 104, carbon dioxide 26.4, amnion gap 9, BUN 11, creatinine 1.80, GFR 91, random glucose 287, calcium 8.4, AST is 9. Troponin 0.11, BNP 71, albumin 3.2. Toxicology shows her dig level less than 0.1. IMAGING STUDIES Shows chest x-ray to have no acute disease. ASSESSMENT/PLAN 1. Chest pain, atypical, rule out MD and acute cardiovascular episode. 2. Cough and dyspnea. The patient has a history of cardiomyopathy but current chest x-ray shows no acute pulmonary edema and her B_P is normal. Need to evaluate her medications for any side-effects of cough. 3. Constipation. Will give her [id number] this morning and encourage p.o. fluids and activity. She may also need daily stool softeners to monitor her BM at least every 3 days. 4. Nausea and vomiting x1, history of gastroesophageal reflux disease. The patient will be on PPI and receive p.r.n. meds for her nausea. 5. Diabetes mellitus type II, uncontrolled. The patient will be started back on her regular meds and will monitor her Accu-Cheks a.c. and h.s. as well as sliding scale. 6. Possible bronchitis. Medical management, monitoring of her labs and her symptoms. 7. Hypertension. Medical management. Will reconcile her usual medications. Will monitor her vital signs q. 4 and as needed. Activity will be out of bed with assistance, cardiac monitoring. Will leave the patient's life vest off for now and keep her on continuous cardiac monitoring while she is in the hospital but on discharge she will need to place that vest back on. Bowel regimen as discussed, IV access, 02 management. The patient is full code, full aggressive care and we will continue to monitor, her hospital course will be based on the findings and the response to the treatment regimen. Dictated by: Tiffanie Gary, Nurse Practitioner MD DARIEN Akins/DOLLY /10:10 AM /10:33 AM seen, examined by myself, Dr Delcid, today Discussed with patient Admitted with chest discomfort, rule out acute coronary event Also she has significant orthopnea and lower extremity edema Cardiomyopathy with severely reduced ejection fraction Cough Lasix 40 mg IV twice daily ordered Cardiology consultation requested Discussed with [facility] level provider The exam, history, and the medical decision-making described in the above note were completed with the assistance of the mid-level provider. I reviewed the findings presented. I attest that I had a [id number] encounter with the patient on the same day, and personally performed and documented my assessment and findings in the medical record. CHEL
[2017-02-27] MEDS ORDERED: DEXTROSE 50% IN WATER 50 ML VIAL(D50) IV PRN (12:00)
[2017-02-27] MEDS ORDERED: GLUCAGON 1 MG/ML VIAL OTHER PRN (12:00)
[2017-02-27] MEDS ORDERED: METOPROLOL TARTRATE 25 MG TAB PO ONE (15:30)
[2017-02-27] MEDS ORDERED: amLODIPine BESYLATE 5 MG TAB PO ONE (15:30)
[2017-02-27] MEDS ORDERED: SPIRONOLACTONE 25 MG TAB PO ONE (15:30)
[2017-02-27] MEDS ORDERED: guaiFENesin SOLUTION 200 MG/10 ML CUP PO PRN (17:30)
[2017-02-27] MEDS: FUROSEMIDE 40 MG/4 ML VIAL IV PUSH SCH (18:02)
[2017-02-27] MEDS: INSULIN ASPART SUPPLEMENTAL SCALE SQ SCH ×2 (18:06→22:48)
[2017-02-27] MEDS: SODIUM CHLORIDE 0.9% FLUSH 10 ML FLUSH IV FLUSH PRN (18:08)
[2017-02-27] MEDS: DOCUSATE SODIUM 50 MG/SENNA 8.6 MG TAB PO SCH (21:00)
[2017-02-27] MEDS: MAGNESIUM SULFATE 1 GM PREMIX 100 ML IV SCH ×2 (21:15→22:44)
[2017-02-27] MEDS: GABAPENTIN 300 MG CAP PO SCH (21:15)
[2017-02-27] MEDS: METOPROLOL TARTRATE 25 MG TAB PO SCH (21:15)
[2017-02-27] MEDS: POTASSIUM CHLORIDE 20 MEQ CONTROLLED RELEASE TAB PO SCH (21:15)
[2017-02-27 21:16] LABS: BLOOD, URINE NEG (NEG); GLUCOSE,URINE 70 mg/dL (NEG); KETONE, URINE NEG (NEG); NITRITE,URINE NEG (NEG); URINE COLOR COLORLESS (YELLW/STRAW)
[2017-02-27] MEDS: SODIUM CHLORIDE 0.9% FLUSH 10 ML FLUSH IV FLUSH SCH (21:16)
[2017-02-27 21:18] LABS: COMMENT (UR) CULT NOT INDICATED; CULTURE IF INDICATED CULT NOT INDICATED
[2017-02-27] MEDS: INSULIN DETEMIR 100 UNITS/ML VIAL SQ SCH (22:46)
[2017-02-28] VITALS (13 sets, daily range): BP systolic 109–139; BP diastolic 60–90; PULSE 75–90; RESP 16–20; TEMP 97.5–98.3; O2SAT 97–100
[2017-02-28] MEDS: INSULIN ASPART SUPPLEMENTAL SCALE SQ SCH ×4 (07:43→20:33)
--- NOTE | 2017-02-28 08:26 | HHI.PR ---
Subjective Remarks Sitting up in bed head of bed elevated greater than 30 Also sits straight up in the bed and dangles States her shortness of breath has improved No further chest pain (Tiffanie Gary) Remarks seen, examined by myself, Dr Sanches, today Discussed with patient She was cleared for discharge from cardiology However her blood sugar was over 400, IV insulin given at this time Discussed with mid level provider The exam, history, and the medical decision-making described in the above note were completed with the assistance of the mid-level provider. I reviewed the findings presented. I attest that I had a [id number] encounter with the patient on the same day, and personally performed and documented my assessment and findings in the medical record. (Pamela Sanches MD) Objective Objective Results - Vital Signs Date Time Temp Pulse Resp B/P Pulse Ox O2 Delivery O2 Flow Rate FiO2 02/28/17 04:34 97.9 80 16 109/60 97 02/28/17 04:09 75 02/28/17 00:28 98.0 79 17 121/73 100 02/28/17 00:18 83 02/27/17 20:17 89 02/27/17 19:23 98.6 82 17 126/77 100 02/27/17 16:02 85 02/27/17 15:31 97.8 87 18 138/82 99 02/27/17 12:23 98.0 93 16 128/73 100 02/27/17 11:22 87 02/27/17 10:09 97.6 75 16 137/79 100 02/27/17 09:55 97.9 81 16 138/81 100 02/27/17 08:29 97.9 81 16 132/76 100 Room Air (Tiffanie Gary) Result Diagram: 02/27/17 0710 02/27/17 0710 ROS General: Fatigue, Weakness, Other (10 point ROS done positives noted) Cardiac: Edema (much improved) Pulmonary: SOB (Tiffanie Gary) Physical Exam Physical Exam PHYSICAL EXAMINATION GENERAL: This is a well-developed obese female who appears to be in no acute distress. She is alert and awake, HEAD: Normocephalic. Facial features appear symmetric. OROPHARYNGEAL: Oropharynx clear NECK: Supple. Trachea midline without deviation. CARDIAC: Regular rhythm, regular rate, S1 and S2 are heard. Possible soft gallop LUNGS: Mild diminished with low volumes to auscultation bilaterally. Cough, no active rhonchi, no sputum production ABDOMEN: Soft, nontender, no organomegaly or masses. Bowel sounds are heard in all four quadrants. No rebound. No guarding. EXTREMITIES: Trace and improved lower extremity edema. Pulses equal bilateral. . NEUROLOGICAL: Patient mood and affect appropriate. No focal deficit SKIN:Warm and moist (Tiffanie Gary) A/P Assessment and Plan 1. Chest pain, she has significant history of cardiomyopathy, and wears a LifeVest at home She received some IV Lasix yesterday and had active diuresis, the edema in her lower extremities is very minimal if any now He was due to see Dr. dailey today and is hoping to see him cardiology consult has been done. She also wants to discuss with him the possibility of disability 2. Cough and dyspnea. Patient states her cough and dyspnea are improved after receiving the Lasix . She is still having some tachycardia cough .Tessalon Perles ordered as needed 3 times a day when necessary . Patient at one time was on an LUIS inhibitor but has no longer been taking the med 3. Constipation. Patient had positive results to milk of magnesia. States medication worked bowel regimen was discussed 4. Nausea and vomiting x1, history of gastroesophageal reflux disease. The patient will be on PPI, no further nausea or vomiting 5. Diabetes mellitus type II, uncontrolled in the 200s. The patient will be started back on her regular meds and will monitor her Accu-Cheks a.c. and h.s. as well as sliding scale. 6. Possible bronchitis. Needs cough control, Tessalon Perles ordered, no sputum noted 7. Hypertension. Medical management. Will reconcile her usual medications. 8. Anemia, probable secondary to her chronic disease, we'll continue to monitor labs Case management consult to assist with process of possible disability in the near future as well as social media manager Discharge planning within the next day or 2 when she is medically stable Discussed with patient Discussed with nurse Discussed with Dr. Sanches, seen on his behalf (Tiffanie Gary) Tiffanie Gary Feb 28, 2017 08:26 Pamela Sanches MD Feb 28, 2017 21:01
[2017-02-28] MEDS: amLODIPine BESYLATE 5 MG TAB PO SCH (08:39)
[2017-02-28] MEDS: METOPROLOL TARTRATE 25 MG TAB PO SCH ×2 (08:39→20:35)
[2017-02-28] MEDS: ASPIRIN EC 81 MG TABEC PO SCH (08:39)
[2017-02-28] MEDS: DOCUSATE SODIUM 50 MG/SENNA 8.6 MG TAB PO SCH ×2 (08:39→20:34)
[2017-02-28] MEDS: ATORVASTATIN 10 MG TAB PO SCH (08:39)
[2017-02-28] MEDS: GABAPENTIN 300 MG CAP PO SCH ×2 (08:39→20:34)
[2017-02-28] MEDS: DIGOXIN 0.125 MG TAB PO SCH (08:39)
[2017-02-28] MEDS: SODIUM CHLORIDE 0.9% FLUSH 10 ML FLUSH IV FLUSH SCH ×2 (08:39→20:35)
[2017-02-28] MEDS: POTASSIUM CHLORIDE 20 MEQ CONTROLLED RELEASE TAB PO SCH ×2 (08:39→20:35)
[2017-02-28] MEDS: SPIRONOLACTONE 25 MG TAB PO SCH (08:40)
[2017-02-28] MEDS: FUROSEMIDE 40 MG/4 ML VIAL IV PUSH SCH ×2 (08:40→18:23)
[2017-02-28] MEDS ORDERED: PNEUMOCOCCAL POLYVALENT INJ 25 MCG/0.5 ML SYR IM ONE (09:00)
--- NOTE | 2017-02-28 11:10 | MB ---
cc: MARKY BROWN MD DATE OF CONSULTATION: 02/28/2017 HISTORY OF PRESENT ILLNESS This is a 51-year-old woman who has a history of nonischemic cardiomyopathy. She was seen last month with an echocardiogram demonstrating an EF of 25-30% and a Lexiscan revealing no evidence for ischemia. She was begun on Coreg and lisinopril. She developed a nonproductive cough and subsequently stopped her lisinopril. She has developed some chest discomfort, especially with coughing which is described as sharp and on her left side. It is tender to palpation. Since her admission to the hospital she has had serial troponins which have all been in the 0.1 range, consistent with her cardiomyopathy. No real exertional component has been present except for the pleuritic nature of her discomfort. No shortness of breath, lightheadedness or dizziness has been present. She has had no palpitations and no firing of her LifeVest has been present. We do note that on her previous visit in January her troponin was also elevated at 0.13. PAST MEDICAL HISTORY Otherwise significant for hypertension. 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 She does not smoke, drink or use recreational drugs. ALLERGIES 1. SULFA. 2. GLUCOPHAGE. PHYSICAL EXAMINATION GENERAL: She is awake and alert. She is in no acute distress. VITAL SIGNS: Blood pressure is 120/80. She is afebrile. NECK: There is no neck vein distention. Carotids are normal. LUNGS: Clear. CARDIOVASCULAR: Regular rate and rhythm. There is no significant murmur and no gallop is noted. ABDOMEN: Soft without tenderness or organomegaly. EXTREMITIES: No edema. ASSESSMENT The patient has atypical chest discomfort, probably secondary to cough from her lisinopril. I have given her the okay to stop her lisinopril entirely and replace this with losartan 25 mg daily. She was supposed to have seen Dr. Tamayo as an outpatient today and we will ask her to reschedule that visit for next week. Marky Brown MD DLW/BT /9:53 AM /11:02 AM
[2017-02-28] MEDS: HEPARIN SODIUM - SQ 10,000 UNITS/ML VIAL SQ SCH ×2 (12:07→21:52)
[2017-02-28] MEDS: BENZONATATE 100 MG CAP PO PRN ×2 (12:16→21:52)
[2017-02-28 12:55] LABS: BASOPHIL % 0.3 % (0.0-2.0); EOSINOPHIL # 0.2 TH/MM3 (0-0.4); EOSINOPHIL % 2.8 % (0.0-4.0); HEMATOCRIT 37.5 % (35.0-46.0); HEMO FLAGS DIFF FINAL; LYMPH % 35.9 % (9.0-44.0); MEAN CELL VOLUME 72.2 FL (80.0-100.0); MEAN CORPUSCULAR HEMOGLOBIN 23.5 PG (27.0-34.0); MEAN CORPUSCULAR HGB CONC 32.5 % (32.0-36.0); MONO % 6.1 % (0.0-8.0); NEUT % 54.9 % (16.0-70.0); PLATELET COUNT 208 TH/MM3 (150-450); WHITE BLOOD COUNT 5.5 TH/MM3 (4.0-11.0)
[2017-02-28 13:39] LABS: BICARBONATE 28.8 MEQ/L (21.0-32.0); POTASSIUM 3.8 MEQ/L (3.5-5.1)
[2017-02-28] MEDS ORDERED: INSULIN HUMAN REGULAR 1,000 UNITS/10 ML VIAL IV PUSH ONE (14:00)
[2017-02-28] MEDS: SODIUM CHLORIDE 0.9% FLUSH 10 ML FLUSH IV FLUSH PRN ×2 (15:25→18:24)
--- NOTE | 2017-02-28 16:36 | EKG ---
Date Performed: 02/27/2017 Time Performed: 07:16:46 PTAGE: 51 years EKG: Sinus rhythm POSSIBLE LEFT ATRIAL ENLARGEMENT MARKED LEFT AXIS DEVIATION LEFT VENTRICULAR HYPERTROPHY AND ST-T CH SARABJIT ABNORMAL ECG PREVIOUS TRACING 02/06/2017 10.16.27 Since previous tracing, no significant change noted DOCTOR: Amari George Interpretating Date/Time 02/28/2017 16:35:07
[2017-02-28] MEDS: INSULIN DETEMIR 100 UNITS/ML VIAL SQ SCH (20:34)
[2017-03-01] VITALS: PULSE 82
[2017-03-01 03:51] VITALS: BP 124/78; PULSE 84; RESP 18; TEMP 98.3; O2SAT 100
[2017-03-01 03:58] VITALS: PULSE 84
[2017-03-01] MEDS: INSULIN ASPART SUPPLEMENTAL SCALE SQ SCH ×2 (06:18→13:32)
[2017-03-01 07:17] VITALS: BP 117/82; PULSE 82; RESP 18; TEMP 97.8; O2SAT 100
[2017-03-01] MEDS: DIGOXIN 0.125 MG TAB PO SCH (08:02)
[2017-03-01] MEDS: SPIRONOLACTONE 25 MG TAB PO SCH (08:02)
[2017-03-01] MEDS: METOPROLOL TARTRATE 25 MG TAB PO SCH (08:02)
[2017-03-01] MEDS: ATORVASTATIN 10 MG TAB PO SCH (08:02)
[2017-03-01] MEDS: amLODIPine BESYLATE 5 MG TAB PO SCH (08:02)
[2017-03-01] MEDS: POTASSIUM CHLORIDE 20 MEQ CONTROLLED RELEASE TAB PO SCH (08:02)
[2017-03-01] MEDS: GABAPENTIN 300 MG CAP PO SCH (08:02)
[2017-03-01 08:03] VITALS: PULSE 83
[2017-03-01] MEDS: SODIUM CHLORIDE 0.9% FLUSH 10 ML FLUSH IV FLUSH SCH (08:03)
[2017-03-01] MEDS: ASPIRIN EC 81 MG TABEC PO SCH (08:03)
[2017-03-01] MEDS: FUROSEMIDE 40 MG/4 ML VIAL IV PUSH SCH (08:03)
[2017-03-01] MEDS: DOCUSATE SODIUM 50 MG/SENNA 8.6 MG TAB PO SCH (08:03)
[2017-03-01] MEDS ORDERED: LOSARTAN 25 MG TAB PO SCH (09:00)
--- NOTE | 2017-03-01 09:04 | HHI.PR ---
Subjective Subjective Remarks no cp no sob blood sugars 190s states that at home they have been elevated up to 300s, has appointment with Dr. Alcantar no fever tele reviewed, SR no cough Review of Systems Constitutional Constitutional Remarks 12 point review of systems completed, negative except as noted above Vitals/Results Vital Signs Vital Signs Date Time Temp Pulse Resp B/P Pulse Ox O2 Delivery O2 Flow Rate FiO2 03/01/17 07:17 97.8 82 18 117/82 100 03/01/17 03:58 84 03/01/17 03:51 98.3 84 18 124/78 100 03/01/17 00:00 82 02/28/17 23:50 98.3 85 18 132/86 98 02/28/17 20:50 86 02/28/17 20:29 98.2 88 20 139/90 99 02/28/17 16:21 98.0 88 16 125/73 99 02/28/17 16:18 90 02/28/17 12:07 76 02/28/17 11:55 97.6 76 18 137/80 98 02/28/17 09:36 97.5 90 18 120/82 98 CBC/BMP: 02/28/17 1145 02/28/17 1145 Lab Results Laboratory Tests Test 02/28/17 11:45 White Blood Count 5.5 TH/MM3 Red Blood Count 5.20 MIL/MM3 Hemoglobin 12.2 GM/DL Hematocrit 37.5 % Mean Corpuscular Volume 72.2 FL Mean Corpuscular Hemoglobin 23.5 PG Mean Corpuscular Hemoglobin 32.5 % Concent Red Cell Distribution Width 14.0 % Platelet Count 208 TH/MM3 Mean Platelet Volume 9.0 FL Neutrophils (%) (Auto) 54.9 % Lymphocytes (%) (Auto) 35.9 % Monocytes (%) (Auto) 6.1 % Eosinophils (%) (Auto) 2.8 % Basophils (%) (Auto) 0.3 % Neutrophils # (Auto) 3.0 TH/MM3 Lymphocytes # (Auto) 2.0 TH/MM3 Monocytes # (Auto) 0.3 TH/MM3 Eosinophils # (Auto) 0.2 TH/MM3 Basophils # (Auto) 0.0 TH/MM3 CBC Comment DIFF FINAL Differential Comment Sodium Level 131 MEQ/L Potassium Level 3.8 MEQ/L Chloride Level 96 MEQ/L Carbon Dioxide Level 28.8 MEQ/L Anion Gap 6 MEQ/L Blood Urea Nitrogen 14 MG/DL Creatinine 0.97 MG/DL Estimat Glomerular Filtration 73 ML/MIN Rate Random Glucose 396 MG/DL Calcium Level 8.9 MG/DL Physical Exam General General Appearance: Well Developed, Well Nourished, No Acute Distress, Comfortable Eyes Eye Exam: Pupils Equal, Pupils Reactive Ears & Nose Ears & Nose Exam: Nasal Mucosa [place] Throat Throat Exam: Oral Mucosa [place] & Moist Neck Neck Exam: Neck Supple, Trachea Midline Pulmonary Resp Exam: Clear Bilaterally, No Distress Cardiology CV Exam: Regular Gastrointestinal/Abdomen GI Exam: Soft, Non-Tender, Bowel Sounds Present, Non-Distended Musculoskeletal MS Exam: Joints Intact Integumentary Skin Exam: Warm, Dry Extremeties Extremities Exam: No Edema, Pedal Pulses Palpable Neurologic Neuro Exam: Alert, Awake, Oriented, Speech Clear, Moving All Extremities, No Focal Deficits Psychiatric Psych Exam: Appropriate Responses VTE Prophylaxis VTE Prophylaxis Device: SCDs VTE Prophylaxis Meds: Heparin Assessment/Plan Problem List: (1) Chest pain (2) CHF (congestive heart failure) (3) Hyperlipidemia (4) HTN (hypertension) (5) Diabetes 1.5, managed as type 2 (6) Cardiomyopathy (7) Hyperglycemia (8) Peripheral neuropathy (9) Elevated troponin Assessment/Plan Chest pain, negative for acute coronary syndrome Appreciate cardiology input, was evaluated by Dr. Brown. Chest pain is atypical, likely due to cough secondary to lisinopril. Recommended losartan 25 mg by mouth daily, we will start today Continue with LifeVest Discontinue Lasix Continue with Aldactone, dig, BB Blood glucose control, up to 400s, discharge he'll yesterday On Lantus at home as well as Amaryl Continue with Accu-Cheks before meals and at bedtime with insulin therapy BGM are trending down, 190s We will resume Amaryl public health educator to see patient today Patient has follow-up appointment with Dr. Alcantar Heparin for DVT prophylaxis We'll discharge this afternoon We will see how she responds to it losartan Needs to follow-up with endocrinology and cardiology Discussed with RN Discussed with Dr. Munroe Discussed with patient This patient was seen by myself and Dr. Munroe this note is written his behalf Problem Qualifiers (1) Chest pain: Qualified Code: R07.9 - Chest pain, unspecified type (2) CHF (congestive heart failure): Qualified Code: I50.23 - Acute on chronic systolic congestive heart failure (3) Hyperlipidemia: Qualified Code: E78.5 - Hyperlipidemia, unspecified hyperlipidemia type (4) HTN (hypertension): Qualified Code: I10 - Essential hypertension (5) Cardiomyopathy: Qualified Code: I42.9 - Cardiomyopathy, unspecified type (6) Peripheral neuropathy: Qualified Code: G62.9 - Peripheral polyneuropathy Trisha Craig Mar 01, 2017 09:04
[2017-03-01] MEDS ORDERED: COZA25TA PO (09:05)
--- NOTE | 2017-03-01 09:05 | HHI.DCPOC ---
Discharge Care Plan Diagnosis: (1) Chest pain (2) CHF (congestive heart failure) Your Health Problems Are: Chest Pain Cough Goals to Promote Your Health * To prevent worsening of your condition and complications * To maintain your health at the optimal level Directions to Meet Your Goals Take your medications as prescribed Follow your dietary instruction Follow activity as directed Keep your appointments as scheduled Take your immunizations and boosters as scheduled If your symptoms worsen call your PCP, if no PCP go to Urgent Care Center or Emergency Room Smoking is Dangerous to Your Health. Avoid second hand smoke Call the 24-hour hour crisis hotline for domestic abuse at Trisha CraigP Mar 01, 2017 09:05
[2017-03-01] MEDS: HEPARIN SODIUM - SQ 10,000 UNITS/ML VIAL SQ SCH (09:51)
[2017-03-01] MEDS ORDERED: GLIMEPIRIDE 4 MG TAB PO SCH (10:00)
[2017-03-01 11:36] VITALS: BP 107/75; PULSE 82; RESP 20; TEMP 97.7; O2SAT 96
[2017-03-01] MEDS ORDERED: LEVEMIR SQ (12:24)
[2017-03-01] MEDS ORDERED: INSULIN DETEMIR 100 UNITS/ML VIAL SQ SCH (21:00)
--- NOTE | 2017-03-20 15:21 | HHI.DS ---
Discharge Summary Admission Date Feb 27, 2017 at 08:52 Discharge Date: Mar 01, 2017 Admitting Diagnosis chest pain (1) Chest pain ICD Codes: R07.9 - Chest pain, unspecified Status: Acute (2) CHF (congestive heart failure) ICD Codes: I50.9 - Heart failure, unspecified Status: Acute (3) Hyperglycemia ICD Codes: R73.9 - Hyperglycemia, unspecified Status: Acute (4) Hyperlipidemia ICD Codes: E78.5 - Hyperlipidemia, unspecified Status: Acute (5) Peripheral neuropathy ICD Codes: G62.9 - Polyneuropathy, unspecified Status: Acute (6) Cardiomyopathy ICD Codes: I42.9 - Cardiomyopathy, unspecified Status: Acute (7) HTN (hypertension) ICD Codes: I10 - Essential (primary) hypertension Status: Acute (8) Diabetes 1.5, managed as type 2 ICD Codes: E10.9 - Type 1 diabetes mellitus without complications Status: Acute Imaging Last Impressions Chest X-Ray 02/27/17 0720 Signed Impressions: Service Date/Time: Monday, February 27, 2017 07:15 - CONCLUSION: No acute disease. Broderick Beck MD Hospital Course This is a pleasant 51-year-old black female who has known coronary artery disease, CHF and other comorbidities. She was just in the hospital over the past few weeks for some of the same symptoms, chest pain, shortness of breath. She states her cough is one of her chief problems and her fatigue. The patient was wearing a life vest when she entered the hospital. The patient notes nausea and vomiting x1 yesterday but no further. Cough continues, her chest pain is left sided, appears to be sharp and increased with respiratory effort. She does have some mild soreness to touch but chiefly notes it hurts to take a deep breath. Her blood sugar on admission was 287 and she is a known diabetic. She also notes constipation. She had a bowel movement yesterday but states that it was very hard and firm and she is struggling with her bowel regimen at home. She was due to see her manager support, Dr. Tamayo but states that her chest pain was to the point that she felt like she needed to be evaluated. The patient also notes low urine output, states that it is not her norm and that she is having more decreased amounts and a dribbling affect. DIAGNOSTIC DATA WBC count 5.3, RBC 4.69, hemoglobin 10.7, hematocrit 34.6, platelet count 183, diff is normal. Coag PT/INR 1.1. Chemistry sodium 139, potassium 3.8, chloride 104, carbon dioxide 26.4, amnion gap 9, BUN 11, creatinine 1.80, GFR 91, random glucose 287, calcium 8.4, AST is 9. Troponin 0.11, BNP 71, albumin 3.2. Toxicology shows her dig level less than 0.1. IMAGING STUDIES Shows chest x-ray to have no acute disease. pt. was admitted for: (1) Chest pain (2) CHF (congestive heart failure) (3) Hyperlipidemia (4) HTN (hypertension) (5) Diabetes 1.5, managed as type 2 (6) Cardiomyopathy (7) Hyperglycemia (8) Peripheral neuropathy (9) Elevated troponin During the course of the hospitalization, the following took place: Admitted with Chest pain, negative for acute coronary syndrome Appreciated cardiology input, was evaluated by Dr. Brown. Chest pain as atypical, likely due to cough secondary to lisinopril. Lisinopril stopped Recommended losartan 25 mg by mouth daily, was started and tolerated well Continued with LifeVest Discontinued Lasix Continue with Aldactone, dig, BB Blood glucose control, up to 400s, discharge held the day before. On Lantus at home as well as Amaryl Continue with Accu-Cheks before meals and at bedtime with insulin therapy BGM are trending down, 190s Resumed Amaryl community nutrition educator consulted Adjusted Levemir Patient has follow-up appointment with Dr. Alcantar Heparin for DVT prophylaxis Pt. stabilized, chest pain better no SOB Discharged in stable condition Pt Condition on Discharge: Fair Discharge Disposition: Discharge Home Discharge Instructions DIET: Follow Instructions for: Heart Healthy Diet, Diabetic Diet Activities you can perform: Weight Bearing as Camilo Follow up Referrals: Cardiology Endocrinology PCP Follow-up New Medications: Insulin Detemir Inj (Levemir Inj) 1,000 unit/ 10 ML Vial 30 UNITS SQ HS for diabetes, #30 INJECTION Losartan (Cozaar) 25 Mg Tab 25 MG PO DAILY for cardiomyopathy, #30 TAB 1 Refill Continued Medications: Albuterol 8.5 GM Inh (Proair Hfa 8.5 GM Inh) 90 Mcg/Act Aer 2 PUFF INH Q4-6H PRN for SOB/WHEEZING, #1 INHALER 0 Refills 108 mcg/actuation Amlodipine (Norvasc) 5 Mg Tab 5 MG PO DAILY for Blood Pressure Management, #30 TAB [address] (Adult Aspirin EC Low Strength) 81 Mg Tabec 81 MG PO DAILY for CHF for 30 Days, TAB Atorvastatin (Lipitor) 10 Mg Tab 10 MG PO DAILY for CHF for 30 Days, TAB Digoxin (Digoxin) 0.125 Mg Tab 0.125 MG PO DAILY for Regulate Heart Beat, #30 TAB 0 Refills Gabapentin (Gabapentin) 300 Mg Cap 300 MG PO BID, #60 CAP 0 Refills Glimepiride (Glimepiride) 1 Mg Tab 8 MG PO DAILY for Blood Sugar Management, #30 TAB 0 Refills Take with breakfast or first main meal Metoprolol Tartrate (Metoprolol Tartrate) 25 Mg Tab 25 MG PO Q12HR for CHF for 30 Days, TAB Spironolactone (Aldactone) 25 Mg Tab 25 MG PO DAILY for CHF for 30 Days, TAB Discontinued Medications: Insulin Human Regular Inj (Humulin R Inj) 1,000 Unit/10 Ml Vial 14 UNITS SQ HS for Blood Sugar Management, #10 ML 0 Refills Trisha Craig Mar 20, 2017 15:21
== END 2017-03-01 13:54 | disposition home or self-care (01) ==
LOC: NEPC 06:59 → NEDA 08:52 → NEPFCDU 10:03
PROVIDERS: ADMIT Specialist; ATTEND Specialist
DX: R07.89 Other chest pain (principal); T46.4X5A Adverse effect of angiotensin-converting-enzyme inhibitors, initial encounter; I11.0 Hypertensive heart disease with heart failure; I25.10 Atherosclerotic heart disease of native coronary artery without angina pectoris; I42.9 Cardiomyopathy, unspecified; I48.91 Unspecified atrial fibrillation; I50.23 Acute on chronic systolic (congestive) heart failure; E11.65 Type 2 diabetes mellitus with hyperglycemia; D63.8 Anemia in other chronic diseases classified elsewhere; E11.42 Type 2 diabetes mellitus with diabetic polyneuropathy; E78.5 Hyperlipidemia, unspecified; J45.909 Unspecified asthma, uncomplicated; K21.9 Gastro-esophageal reflux disease without esophagitis; K59.00 Constipation, unspecified; Z79.899 Other long term (current) drug therapy; Z90.710 Acquired absence of both cervix and uterus; R00.0 Tachycardia, unspecified; Z23 Encounter for immunization
CPT/HCPCS: 71010; 80048; 80053; 80162; 81001; 82550; 82552; 82948; 83735; 83880; 84484; 85025; 85610; 85730; 90732; 93005; 96365; 96366; 96372; 96375; 96376; 99285; G0378; J1644; J1815; J1940; J2405; J3475

== ENCOUNTER 2017-05-12 10:44 | Day surgery (SDC) | payer OTHER ==
[~2017-05-12] VITALS: Ht 180.3 cm; Wt 99.8 kg
[2017-05-12] VITALS (8 sets, daily range): BP systolic 124–138; BP diastolic 84–90; PULSE 72–88; RESP 14–16; TEMP 97.2–98.2; O2SAT 97–100
[~2017-05-12 10:44] MED LIST changes: -BENZ100 PO; +COZA25TA PO; -DEFIB EXTERNAL; -INSU100V2 SQ; +LEVEMIR SQ; -LEVO750T3 PO; -LISI10TA3 PO
[2017-05-12] MEDS ORDERED: LACTATED RINGER'S 1000 ML IV PRN (11:15)
[2017-05-12] MEDS ORDERED: POVIDONE IODINE 5% (ANTISEPSIS KIT) 4 APPLICATIONS EACH NARE PRN (11:15)
[2017-05-12] MEDS ORDERED: NO Heparin, Lovenox, Coumadin at least 12 hours prior to procedure. PRN (11:15)
[2017-05-12] MEDS ORDERED: INSULIN HUMAN REGULAR 1,000 UNITS/10 ML VIAL SQ PRN (11:15)
[2017-05-12] MEDS ORDERED: LORazepam 1 MG TAB SL SCH (11:15)
[2017-05-12] MEDS ORDERED: POVIDONE IODINE 5% (ANTISEPSIS KIT) 4 APPLICATIONS EACH NARE SCH (11:15)
[2017-05-12] MEDS ORDERED: METOPROLOL TARTRATE 25 MG TAB PO PRN (11:15)
[2017-05-12] MEDS ORDERED: CHLORHEXIDINE GLUCONATE 2 % 1 PACK (2 CLOTHS) TOPICAL SCH (11:15)
[2017-05-12] MEDS ORDERED: SODIUM CHLORID 0.9% 500 ML IV PRN (11:15)
[2017-05-12] MEDS ORDERED: Hold AM Insulin & AM Hypoglycemic medications in diabetic patients PRN (11:15)
[2017-05-12] MEDS ORDERED: VANCOMYCIN 1000 MG/NS 250 ML IV SCH ×2 (11:15)
[2017-05-12] MEDS ORDERED: ceFAZolin 2 GM PREMIX 50 ML IV SCH (11:15)
[2017-05-12] MEDS ORDERED: CHLORHEXIDINE GLUCONATE 2 % 1 PACK (2 CLOTHS) TOPICAL PRN (11:15)
[2017-05-12 11:49] LABS: AUTOMATED NEUTROPHIL # 3.1 TH/MM3 (1.8-7.7); BASOPHIL % 0.3 % (0.0-2.0); EOSINOPHIL # 0.1 TH/MM3 (0-0.4); EOSINOPHIL % 2.7 % (0.0-4.0); HEMATOCRIT 36.3 % (35.0-46.0); HEMO FLAGS DIFF FINAL; LYMPH % 33.6 % (9.0-44.0); LYMPHOCYTE # 1.8 TH/MM3 (1.0-4.8); MEAN CELL VOLUME 73.5 FL (80.0-100.0); MEAN CORPUSCULAR HEMOGLOBIN 23.3 PG (27.0-34.0); MEAN CORPUSCULAR HGB CONC 31.7 % (32.0-36.0); MONO % 6.1 % (0.0-8.0); NEUT % 57.3 % (16.0-70.0); PLATELET COUNT 223 TH/MM3 (150-450); RED BLOOD COUNT 4.95 MIL/MM3 (4.00-5.30); RED CELL DISTRIBUTION WIDTH 14.8 % (11.6-17.2); WHITE BLOOD COUNT 5.4 TH/MM3 (4.0-11.0)
[2017-05-12] MEDS ORDERED: SACU1TAB PO (11:55)
[2017-05-12] MEDS ORDERED: HYDR25TA5 PO (11:55)
[2017-05-12] MEDS ORDERED: CARV25TA PO (11:55)
[2017-05-12 11:56] LABS: APTT (PATIENT) 27.6 SEC (24.3-30.1); INTERNATIONAL NORMALIZED RATIO 1.1 RATIO
[2017-05-12] MEDS ORDERED: MUPIROCIN 2% OINT 1 APPLIC/GM SYR NASAL SCH (12:00)
[2017-05-12] MEDS ORDERED: NS 1000 ML IV SCH (12:00)
[2017-05-12 12:05] LABS: BICARBONATE 26.1 MEQ/L (21.0-32.0); POTASSIUM 4.2 MEQ/L (3.5-5.1)
[2017-05-12] MEDS ORDERED: GLUCAGON 1 MG/ML VIAL OTHER PRN ×2 (13:15→17:30)
[2017-05-12] MEDS ORDERED: DEXTROSE 50% IN WATER 50 ML VIAL(D50) IV PUSH PRN ×2 (13:15→17:30)
[2017-05-12] MEDS ORDERED: ceFAZolin INJ 1,000 MG VIAL ONE (14:12)
[2017-05-12] MEDS ORDERED: VANCOMYCIN HCL 1000 MG VIAL ONE (14:12)
[2017-05-12] MEDS ORDERED: VANCOMYCIN 500 MG VIAL ONE (14:12)
[2017-05-12] MEDS ORDERED: LIDOCAINE HCL 2% 50 ML VIAL ONE (14:12)
[2017-05-12] MEDS ORDERED: SODIUM CHLOR 0.9% 250 ML INJ 0 ML ONE (14:12)
[2017-05-12] MEDS ORDERED: SODIUM CHLOR 0.9% 250 ML INJ 250 ML ONE (14:21)
[2017-05-12] MEDS ORDERED: ISOPROTERENOL HCL 1 MG/5 ML AMP ONE (14:21)
[2017-05-12] MEDS ORDERED: PHENYLEPH/NS 1000 MCG/10 ML SYR IV ONE (14:36)
[2017-05-12] MEDS ORDERED: MIDAZOLAM HCL 2 MG/2 ML VIAL IV ONE (14:36)
[2017-05-12] MEDS ORDERED: PROPOFOL 200 MG/20 ML AMP IV ONE (14:36)
[2017-05-12] MEDS ORDERED: ONDANSETRON HCL 4 MG/2 ML VIAL IV PUSH ONE (14:36)
[2017-05-12] MEDS ORDERED: LIDOCAINE HCL 1% PF 5 ML AMPULE OTHER ONE (14:36)
--- NOTE | 2017-05-12 15:05 | CATHPROC ---
[facility] RE[facility] HIS Report Study Information Study Number Admission Scheduled Start Study Start [id number] May 12 2017 10:44AM 05/12/2017 May 12 2017 1:22PM [place] Service Electrophysiology Study Admit Source Facility Department Other [facility] - Waste Machine Offbearer Physician and Clinical Staff Initial Aicha Gomez Oxygen Furnace Operator Latasha Degroot,RADIOGRAPHER CARDIAC CATHETERIZATION Other Anesthesia, MICROFICHE CAMERA OPERATOR Recorder Citlalli Azar,RN Recorder Negar Patel,HILDA Scrub Carl Saucedo,RT(R) Equipment Time Spray Booth Operator Description Size Mfg Part Number Used/Scraped [id number] 14:30 [employer]™ INDUSTRIES PACK, CCL CUSTOM * Used *[id number] 14:30 [employer]™ PACER LOVELACE, LIMB * 2530 *[id number] Used [id number] 14:30 [employer] BLANKET,WARM AIR CCL * Used *[id number] 14:30 [employer] CATHETER, JSN, QUAD FR 5 Used *[id number] 14:30 [employer] CATHE[employer], JSN, QUAD FR 5 Used *[id number] 14:30 [employer] CAT[employer], JSN, QUAD FR 5 Used *[id number] 14:30 [employer] CATHETER, JSN, QUAD FR 5 Used *[id number] 14:31 [employer] SHEATH, EPS, FR5 FAST CATH FR 5 Used *[id number] 14:31 [employer], EPS, FR5 FAST CATH FR 5 Used *[id number] 14:31 [employer], EPS, FR5 FAST CATH FR 5 Used *[id number] 14:31 [employer], EPS, FR6 FAST CATH FR 6 Used *[id number] History: Risk Factors Family History of Hypertension Dyslipidemia Previous GA Previous Heart Failure Premature CAD Yes Yes No No Yes Prior Valve Prior PCI Prior CABG Surgery No No No Cerebrovascular Peripheral Artery Chronic Lung On Dialysis Diabetes Disease Disease Disease No No No No Yes Medication Medication Total Dose (Bolus/Oral) Medication Total Dosage/Unit 1% XYLOCAINE 20 mL Medications (Bolus/Oral) Medication Time Given Dosage/Unit Administered By Reason 1% XYLOCAINE 05/12/2017 2:44:29 PM 20 mL Aicha Vasquez 20 mL 1% XYLOCAINE given in lab by Aicha Vasquez in Right Groin via Subcutaneous. Initial Case Assessment Cardiovascular HR Rhythm NIBP Chest Pain 77 SR 131/80 0 Edema Present Skin color Skin None Normal Warm Dry Circulatory - Right Pulses Dorsalis Pedis 1 Scale (0,1,2,3,4,d) Circulatory - Left Pulses Dorsalis Pedis 1 Scale (0,1,2,3,4,d) Neurological State Oriented to time-place- Alert Moves all extremities person Respiration - General Respiration Rate SpO2 (%) O2 (lpm) (B/min) 18 100 2 Chronological Log Time Study Chronological Log 14:07:16 Patient arrived via Bed. 14:07:17 Patient Name, D.O.B, / Armband Verified By R.N. 14:07:18 Consent signed by the physician and the patient and verified by the Waste Machine Offbearer staff. 14:07:19 Pre-op and post- op instructions given; patient acknowledges understanding of instructions. 14:07:20 Verbal Stimulation=2 Physical Stimulation=2 Airway=2 Respiration=2 TOTAL=8. (0=absent, 1=li mited, 2=present) 14:07:58 Anesthesia at bedside. Assumes care of patient. SEE RECORDS FOR MEDS AND VITALS DURING CASE 14:24:39 Reference ECG taken 14:27:40 Patient has been NPO for More than 6Hrs. 14:27:41 Skin Breakdown- 14:27:41 Patient Warmer Placed on the Table. 14:27:42 Disposable Defibrillator Pads Placed On Patient. 14:27:43 Bandar Prominences Protected 14:27:45 IV Warmer Connected To Patient. 14:27:57 A # 20 IV was noted in the Wrist (left). Grade = 0 14:28:11 A # 20 IV was noted in the Antecubital (right). Grade = 0 14:28:32 History and physical on the chart or being dictated. Assessment: Initial Case, HR=77 BPM, Rhythm=SR, MVAR=190/80 mmhg, Chest Pain=0, Edema=None, Col or=Normal, Skin = Warm, Dry Right Pulses: [place] Ped=1 14:28:33 Left Pulses: [place] Ped=1 Neurological: State=Alert, Ox3, BANERJEE Respiration: Resp=18 B/min, LrH8=742 %, O2=2 lpm 14:29:02 Table restraints applied according to hospital policy 14:29:05 Bilateral groins prepped with 2% chlorhexidine, and draped after a 3 minute waiting time. Time Out. Correct patient, procedure, procedure equipment, site and side verified with physicia n present. Time 14:42:42 concurred by MD, individual staff and MICROFICHE CAMERA OPERATOR. Time Out #2 - Consents verified, patient in correct position, all results are labled and displa yed, safety precautions 14:42:44 taken, antibiotics administered. Time out concurred by MD, individual staff and MICROFICHE CAMERA OPERATOR in procedu re 14:43:51 Case Start 14:44:29 20 mL 1% XYLOCAINE given in lab by Aicha Vasquez in Right Groin via Subcutaneous. 14:45:15 Vascular access was obtained in the Fem Vein (right). 14:45:22 Vascular access was obtained in the Fem Vein (right). 14:45:25 Vascular access was obtained in the Fem Vein (right). 14:45:26 Vascular access was obtained in the Fem Vein (right). 14:45:33 A SHEATH, EPS, FR5 FAST CATH FR 5 was advanced into the Fem Vein (right) using the Percutan eous technique. 14:48:41 A SHEATH, EPS, FR5 FAST CATH FR 5 was advanced into the Fem Vein (right) using the Percutan eous technique. 14:48:42 A SHEATH, EPS, FR5 FAST CATH FR 5 was advanced into the Fem Vein (right) using the Percutan eous technique. 14:48:44 A SHEATH, EPS, FR6 FAST CATH FR 6 was advanced into the Fem Vein (right) using the Percutan eous technique. A CATHETER, JSN, QUAD FR 5 was advanced vis Fem Vein (right) and placed in the CS. Placement wa s visually 14:49:01 confirmed under fluoroscopy. A CATHETER, JSN, QUAD FR 5 was advanced vis Fem Vein (right) and placed in the HIS. Placement w as visually 14:49:09 confirmed under fluoroscopy. A CATHETER, JSN, QUAD FR 5 was advanced vis Fem Vein (right) and placed in the HRA. Placement was visually 14:49:11 confirmed under fluoroscopy. A CATHETER, JSN, QUAD FR 5 was advanced vis Fem Vein (right) and placed in the RVA. Placement was visually 14:49:13 confirmed under fluoroscopy. 14:49:56 Catheter placement verified under fluoroscopy. 14:52:39 Incremental Atrial Pacing in progress 14:52:44 Incremental Ventricular Pacing in progress. 14:57:13 Ventricular tachycardia induced. 14:58:52 Patient prepped for the ICD procedure...... End Study - Contrast Media Used In Study Contrast Total Opened (mL) Total Used (mL) Total Wasted (mL) Unspecified 0 0 0 End Study - Radiation Exposure Fluoro Time (minutes) 1.1 End Study - Patient Disposition Complications Transferred To Interventional Outcome No Waste Machine Offbearer Holding successful
--- NOTE | 2017-05-12 16:16 | PD.CARD ---
SINGLE CHAMBER DEFIB IMPLANT PROCEDURE DATE: May 12, 2017 NYHA Classification: Class II (Mild) Prevention: Secondary Single Chamber Defib Implant PROCEDURE: Single chamber defibrillator implantation and device testing. INDICATIONS: Ms. Du is a 52 -year-old female with hx of congestive heart failure, ejection fraction 30%, non ischemic cardiomyopathy , VT during electrophysiology study who undergo defibrillator implantation for sudden secondary prevention. The risks, the nature and the benefit of the procedure are clearly stated to her . Risks include pneumothorax, cardiac perforation, stroke and even . She understood and agreed to proceed. PROCEDURE: As written, informed consent was obtained prior to the electrophysiology study, the patient was kept on the table where she was prepped and draped in the sterile fashion. Conscious sedation was initiated and maintained throughout the procedure by anesthesiologist. Once sedation was verified, the left infraclavicular area was anesthetized with 2% Xylocaine. Using modified Seldinger technique, the left subclavian vein was cannulated on one occasion and one guide wire was advanced. Then, using #11 blade scalpel, a 3-cm incision was made two fingerbreadths below left clavicle. This incision was then taken down to the deep fascial layer using Bovie cautery and blunt dissection. Into the inferomedial direction, a device pocket was dissected, then the wire was dissected into the pocket. A 2-0 Vicryl suture was placed around the wires to prevent bleeding. At this point, over the wire, the 9- Thai dilator and introducer was advanced. As dilator and wire were removed, an active fixation right ventricular pacing, sensing and defibrillatory lead was advanced. After adequate pacing and sensing thresholds were obtained, the lead was secured in the pocket with #2 Ethibond suture. At that point, the pocket was copiously irrigated with antibiotic solution. The leads were connected to the generator and placed into the pocket. I did proceed with NIPS. Initial induction consisted of T-wave shock which induced ventricular fibrillation which was adequately detected and fail to convert with 21 and 31 joules. was rescued with 200 biphasic external joules. Induction was reinitiated. VF induced. Fail 31 then 41 joules fail. Patient was rescued by an external 200 biphasic joules. At that point NIPS was complete. Fluoroscopy is showing lead in great position. I am going to initiate sotalol and consider repeat device testing in the future. I did proceed with wound closure. The deep fascial layer was approximated with 2-0 Vicryl suture in a continuous fashion. The subcutaneous layer was approximated with 2-0 Vicryl suture in a continuous fashion. The subcuticular layer was approximated with 2-0 Vicryl suture in a continuous fashion. Dermabond adhesive was applied to the wound, followed by a sterile pressure dressing. There was no complication. The patient tolerated procedure. Blood loss minimal. 1. Implanted Hardware: The implanted defibrillator generator is a Kaleidoscope, model number D020, serial number [id number]. The right ventricular pacing, sensing and defibrillatory lead is a [employer] model number 0296 , serial number [id number]. 2. Thresholds: The right ventricular pacing threshold in the bipolar mode was 1.1volts at 0.5 milliseconds, lead impedance 600 ohms and R-wave at 15.8 mV. The right ventricular defibrillatory threshold was not reached. Patient fail 21 , 31, 41 Joules with also reverse polarity. 3. Settings: The device set in VVI 40 defibrillatory portion for two zones, one zone for ventricular tachycardia between 170 and 250 beats per minute. Initial therapy consists of one burst of ATP, one ramp, 81%, 10 pulse, 10 millisecond decremental, followed by 31 and all subsequent shocks at 41 joules defibrillatory shock, the second zone for ventricular fibrillation above 250beats per minute, first therapy at 31 and all subsequent shocks at 41 joules defibrillatory shock. CONCLUSIONS: Successful defibrillator implantation and unsuccessful device testing device testing. COMMENT AND RECOMMENDATIONS: The patient will be transferred to the telemetry unit, will be observed and when stable can be discharged home. Aicha Vasquez MD May 12, 2017 16:16
--- NOTE | 2017-05-12 16:19 | CATHPROC ---
ESBATech HIS Report Study Information Study Number Admission Scheduled Start Study Start [id number] May 12 2017 10:44AM 05/12/2017 May 12 2017 3:06PM [place] Service Cardiac Pacer/ICD Admit Source Facility Department Other [facility] - Fine Artist Physician and Clinical Staff Initial Aicha Gomez Assistant Librarian Letitia Waggoner,RT(R) TECH2 Assistant Librarian Carl Saucedo,RT(R) Other Anesthesia, SAMPLE BOOK MAKER Recorder Letitia Waggoner,RT(R) TECH2 Scrub Latasha Degroot RCIS Procedures Performed Procedure Lead Insertion Equipment Time Eviction Specialist Description Size Mfg Part Number Used/Scraped [employer] 15:24 SHEATH, FR7 11CM 7FR 11CM [id number] Used INC. [employer]/ EP DEFIBRILLATOR, DYNAGEN MINI 15:33 D020 Used PACER ICD VR [employer]/ EP LEAD, ENDOTAK RELIANCE G 15:33 64CM 0296 Used PACER 64CM (DEFIB) DERMABOND, ADHESIVE SKIN [id number] 15:08 CORDIS/PACER * Used GLUE MINI *[id number]-1103 15:08 [employer] SUTURE, STRIP PLUS 1/2" * Used *[id number] 15:08 MEDLINE PACER LOVELACE, LIMB * 2530 *[id number] Used [id number] 15:08 [employer] PACER PACK, PACER CUSTOM * Used *[id number] 15:28 Needle Sponge Count 2 2 Used 15:46 Needle Sponge Count 2 22 Used 15:28 Needle Sponge Count 20 200 Used SUTURE, 0 ETHIBOND [CT1] (CX21D), 8pk SUTURE, 2-0 VICRYL [CT1] (XOS173H) SUTURE, 2-0 VICRYL [CT1] (KUO312X) [id number] 15:08 [employer] [facility],WARM AIR CCL * Used *[id number] [facility] PAD, ELECTROSURGICAL 15:08 * [id number] *[id number] Used SURGICAL GROUNDING ORANGE [id number] 15:08 [employer] KATHY. / * Used *48195 Equipment Model, Serial, Lot Number and Expiration Data Description Model Number Serial Number Lot Number Expiration Date DEFIBRILLATOR, DYNAGEN MINI D020 [id number] 02-11-2019 ICD VR LEAD, ENDOTAK RELIANCE G 64CM 0296 [id number] 02-04-2019 (DEFIB) Medication Medication Total Dose (Bolus/Oral) Medication Total Dosage/Unit 2% XYLOCAINE 50 mL Medications (Bolus/Oral) Medication Time Given Dosage/Unit Administered By Reason 2% XYLOCAINE 05/12/2017 3:30:54 PM 50 mL Aicha Vasquez 50 mL 2% XYLOCAINE given in lab by Aicha Vasquez via Subcutaneous. applied to left upper chest Final Case Assessment Cardiovascular HR Rhythm NIBP Chest Pain 80 sr 104/63 0 Edema Present Skin color Skin None Normal Warm Dry Neurological State Oriented to time-place- Alert Moves all extremities person Respiration - General Respiration Rate SpO2 (%) (B/min) 18 100 Chronological Log Time Study Chronological Log 15:09:04 Initial procedure has been completed. Beginning additional procedure. 15:09:05 NOTE: This patient is undergoing an additional procedure while still in the Cardiac Cath La b. 15:09:06 2% CHLORHEXIDINE GLUCONATE WASH AND NASAL SWIPE DONE PRIOR TO PROCEDURE. 15:09:08 Bovie ground pad applied to: RIGHT THIGH 15:15:13 Left Upper Chest Prepped Times Two. 15:24:58 Anesthesia still at bedside. Assumes care of patient. Antoni Garcia CRNA 15:25:28 Reference ECG taken First Sponge And Instrument Count Done by Letitia Waggoner, RT(R) TECH2. 15:25:34 Hypo's: 2, Sponges: 20, Bovie/scratch: bovie/scratch Sutures: 10, Blades: 1, Instruments: 26, Syveck Patches: 0 15:30:53 Case Start 15:30:54 50 mL 2% XYLOCAINE given in lab by Aicha Vasquez via Subcutaneous. applied to left upper ch est 15:31:20 Vascular access was obtained in the Subclav. Vein (Lft. 15:32:05 Wire inserted 15:32:08 A SHEATH, FR7 11CM 7FR 11CM was advanced into the Subclav. Vein (Lft using the Percutaneous technique. 15:34:33 A LEAD, ENDOTAK RELIANCE G 64CM (DEFIB) 64CM was inserted and positioned in the RV. 15:34:38 Lead placement verified under fluoroscopy 15:38:48 The RV lead impedance and threshold being tested. 15:43:56 The RV lead was sutured to the fascia. 15:44:02 A DEFIBRILLATOR, TerraPowerAGEN MINI ICD VR was connected and placed in the pocket. 15:44:20 Pocket flushed with antibiotic solution 15:44:31 A ICD Implant . (Single) 15:45:45 Implant Procedure was performed. Second Sponge And Instrument Count Done by Aicha Vasquez. 15:46:20 Hypo's: 2, Sponges: 20, Bovie/scratch: 2 Sutures: ~SUTURE~, Blades: 1, Instruments: ~INSTRU~, Syveck Patches: 0 15:46:58 The pocket was closed. 15:49:37 A two Joule DFT was performed. 15:50:10 The DFT was Unsuccessful at 21 Joules, ~OHMS~ Ohms lead impedance and 4000 ms charge time. 15:51:33 The DFT was Unsuccessful at 31 Joules, ~OHMS~ Ohms lead impedance and 6000 ms charge time. 15:51:44 DFT was rescued by [id number] 15:56:23 The DFT was Unsuccessful at 31 Joules, ~OHMS~ Ohms lead impedance and ~TIME~ ms charge denia e. 15:56:26 The DFT was Unsuccessful at 41 Joules, ~OHMS~ Ohms lead impedance and ~TIME~ ms charge denia e. 15:56:58 DFT was rescued by [id number] The Final Sponge And Instrument Count Done by Aicha Vasquez. 15:57:40 Hypo's: 2, Sponges: 20, Bovie/scratch: 2 Sutures: 10, Blades: 1, Instruments: 26, Syveck Patches: 0 15:57:54 Steri-strips and a sterile dressing applied to site. 15:58:04 Case End 15:58:13 Bedside Report will be given. 15:58:32 A sling was placed on the affected arm. Assessment: Final Case, HR=80 BPM, Rhythm=sr, RECB=095/63 mmhg, Chest Pain=0, Edema=None, Bandy r=Normal, Skin = Warm, Dry 15:58:40 Neurological: State=Alert, Ox3, BANERJEE Respiration: Resp=18 B/min, ZkR6=447 % 15:59:13 No case complications noted. 15:59:15 Cine recording checked. 15:59:20 Defibrillator and ground pads removed. Skin intact. 16:00:58 DOCU notified procedure complete. Spoke with Amber SYED 16:01:44 Implantable Device card placed in patient's chart. 16:05:22 Patient moved to stretcher End Study - Contrast Media Used In Study Contrast Total Opened (mL) Total Used (mL) Total Wasted (mL) Unspecified 0 0 0 End Study - Radiation Exposure Fluoro Time (minutes) 1.3 End Study - Patient Disposition Complications Transferred To No Telemetry Bed
[2017-05-12] MEDS ORDERED: SODIUM CHLOR 0.9% 250 ML INJ 250 ML IV PRN (16:30)
[2017-05-12] MEDS ORDERED: METOCLOPRAMIDE HCL 10 MG/2 ML VIAL IV PUSH PRN (16:30)
[2017-05-12] MEDS ORDERED: TEMAZEPAM 15 MG CAP PO PRN (16:30)
[2017-05-12] MEDS ORDERED: LORazepam 2 MG/ML VIAL IV PUSH PRN (16:30)
[2017-05-12] MEDS ORDERED: oxyCODONE/ACETAMINOPHEN 5 MG/325 MG TAB PO PRN (16:30)
[2017-05-12] MEDS ORDERED: ONDANSETRON HCL 4 MG/2 ML VIAL IV PUSH PRN ×2 (16:30)
[2017-05-12] MEDS ORDERED: SODIUM CHLORIDE 0.9% FLUSH 10 ML FLUSH IV FLUSH PRN (16:30)
[2017-05-12] MEDS ORDERED: ATROPINE SULFATE 1 MG/ML VIAL IV PUSH PRN (16:30)
[2017-05-12] MEDS ORDERED: LIDOCAINE HCL 1% 50 ML VIAL INFIL PRN (16:30)
[2017-05-12] MEDS ORDERED: BACITRACIN OINT 0.9 GM PKT TOP ONE (16:30)
--- NOTE | 2017-05-12 16:53 | RADRPT ---
EXAM DATE/TIME: 05/12/2017 16:41 [facility] COMPARISON: CHEST SINGLE AP, February 27, 2017, 7:15. INDICATIONS : Post pacemaker, pneumothorax. MEDICAL HISTORY : None. SURGICAL HISTORY : None. ENCOUNTER: Subsequent ACUITY: 1 day PAIN SCORE: Non-responsive. LOCATION: Bilateral chest FINDINGS: The heart is enlarged. There has been placement of a pacer in the right chest. There is no pneumothor ax. The lungs are otherwise clear. The osseous structures are intact. CONCLUSION: 1. No pneumothorax identified following pacer placement. Jos Figueroa MD on May 12, 2017 at 16:51 Board Certified Radiologist. This report was verified electronically.
[2017-05-12] MEDS: MEDIUM DOSE INSULIN NOVOLOG SUPPLEMENTAL SCALE SQ SCH (17:00)
[2017-05-12] MEDS ORDERED: DO NOT ADM ANY ANTICOAGULANT DRUGS PRN ×2 (17:15→18:15)
[2017-05-12] MEDS ORDERED: INSULIN ASPART 1,000 UNITS/10 ML VIAL SQ ONE (17:19)
[2017-05-12] MEDS ORDERED: PLEASE DISCONTINUE PREVIOUS SUPPLEMENTAL SCALE INSULIN ORDERS ONE (17:30)
[2017-05-12] MEDS ORDERED: *morphine SULFATE 8 MG/ML PERIprocedure ONLY ONE (17:30)
[2017-05-12] MEDS: ceFAZolin 2 GM PREMIX 50 ML IV SCH (18:00)
--- NOTE | 2017-05-12 19:22 | MA ---
cc: PRUDENCE HARRIS M.D. DATE 05/12/17 PROCEDURE Electrophysiology study, CS cannulation. INDICATIONS Mrs. Du is a 52-year-old -[place] female with history of congestive heart failure, cardiomyopathy who undergo a previous defibrillatory vest on optimal medical treatment who will undergo electrophysiology study and device insertion. The risks, the nature and the benefit of the procedure are clearly stated to her. The risks include pneumothorax, cardiac perforation, stroke and even . She understood and agreed to proceed. PROCEDURE After written informed consent was obtained, the patient was brought to the EP lab where she was prepped and draped in the usual sterile fashion. Conscious sedation was initiated and maintained throughout the procedure by anesthesiologist. Once sedation verified, the right inguinal area was anesthetized with 2% Xylocaine. Using modified Seldinger technique, the right femoral vein was cannulated on four occasion, four guidewire were advanced over the wire, 3, 5 and a 6-Spanish Hemaquet were advanced. Then under fluoroscopic guidance through the 5 and 6 Spanish Hemaquet, four 5-Spanish Lokesh curved quadripolar electrophysiology catheter advanced into position on the His, upper right atrium, coronary sinus and right ventricular apex. Basic interval was measured. They were within normal limits. At this point atrial pacing protocol was performed. Atrial pacing protocol consisted of incremental atrial pacing as well as program stimulation with ___ cycle length and up to one extrastimuli delivered. No tachyarrhythmia was induced. Then ventricular pacing protocol was performed. There was VA conduction. During ventricular pacing protocol ventricular tachycardia was induced. While I attempted to cardiovert the patient the patient converted into sinus rhythm. At that point procedure was completed. All catheter removed. The patient going to kept on the table and a single chamber defibrillator will be implanted for sudden secondary prevention. No incident report. The patient tolerated the procedure. Blood loss minimal. CONCLUSIONS 1. Electrocardiogram: At baseline the patient was in sinus, postprocedure electrocardiogram was unchanged. 2. Basic interval: Basic cycle length was around 750 milliseconds A-H at 86 and H-V at 54 milliseconds. 3. Atrial pacing protocol: Wenckebach of the node was around 460 510 milliseconds. ERP of the node 600, 460 milliseconds. No tachyarrhythmia was induced. During ventricular pacing protocol there was VA conduction, ventricular tachycardia was induced. CONCLUSION Positive electrophysiology study for ventricular tachyarrhythmia. COMMENT/RECOMMENDATIONS The patient going to be kept on the table. A single chamber defibrillator will be implanted for sudden secondary prevention. MD NEDRA Teran/LEONA /4:18 PM /6:56 PM
[2017-05-12] MEDS ORDERED: MEDIUM DOSE INSULIN NOVOLOG SUPPLEMENTAL SCALE SQ SCH (21:00)
[2017-05-12] MEDS: SODIUM CHLORIDE 0.9% FLUSH 10 ML FLUSH IV FLUSH SCH (21:00)
[2017-05-12] MEDS: oxyCODONE/ACETAMINOPHEN 5 MG/325 MG TAB PO PRN (21:37)
[2017-05-12] MEDS: GABAPENTIN 300 MG CAP PO SCH (21:37)
[2017-05-12] MEDS: CARVEDILOL 12.5 MG TAB PO SCH (21:38)
--- NOTE | 2017-05-12 23:12 | EKG ---
Date Performed: 05/12/2017 Time Performed: 16:52:52 PTAGE: 52 years EKG: Sinus rhythm WITH FIRST DEGREE AV BLOCK MARKED LEFT AXIS DEVIATION MODERATE INTRAVENTRICULAR CONDUCTION DELAY MOD ERATE VOLTAGE CRITERIA FOR LVH, CONSIDER NORMAL VARIANT NONSPECIFIC T-WAVE ABNORMALITY ABNORMAL ECG PREVIOUS TRACING : 05/12/2017 11.46 Compared to prior tracing no significant change DOCTOR: Noah Mullins Interpretating Date/Time 05/12/2017 23:11:32
--- NOTE | 2017-05-12 23:31 | EKG ---
Date Performed: 05/12/2017 Time Performed: 11:46:06 PTAGE: 52 years EKG: Sinus rhythm with borderline 1st degree A-V block. Left axis deviation Left ventricular hypertrophy Lateral T wav e changes are probably due to ventricular hypertrophy Abnormal ECG PREVIOUS TRACING : 02/27/2017 07.16 Compared to prior tracing no significant change DOCTOR: Noah Mullins Interpretating Date/Time 05/12/2017 23:30:57
[2017-05-13] VITALS (13 sets, daily range): BP systolic 127–145; BP diastolic 79–87; PULSE 79–88; RESP 16–18; TEMP 97.2–97.9; O2SAT 96–98
[2017-05-13] MEDS: ceFAZolin 2 GM PREMIX 50 ML IV SCH (01:16)
[2017-05-13] MEDS: oxyCODONE/ACETAMINOPHEN 5 MG/325 MG TAB PO PRN ×2 (02:44→08:35)
[2017-05-13] MEDS ORDERED: CEPH-460 PO (07:50)
--- NOTE | 2017-05-13 07:57 | PD.CARD.PN ---
Subjective Subjective Remarks Feels ok. Objective Medications Current Medications Medications (Trade) Dose Ordered Sig/Bucky Route Start Time Stop Time Status Last Admin Miscellaneous Information Hold AM Insulin & ... UNSCH PRN .XX 05/12/17 11:15 05/16/17 11:14 Miscellaneous Information NO Heparin, Loven... UNSCH PRN .XX 05/12/17 11:15 05/16/17 11:14 Sodium Chloride 1,000 ml @ 30 mls/hr Q24H IV 05/12/17 12:00 Cefazolin Sodium/ Dextrose 50 ml @ 100 mls/hr [employer] IV 05/12/17 11:15 05/15/17 11:14 Vancomycin HCl 1000 mg/Sodium Chloride 250 ml @ 250 mls/hr [employer] IV 05/12/17 11:15 05/15/17 11:14 (Ativan) 1 mg [employer]IATE SL 05/12/17 11:15 05/15/17 11:14 (Betadine 5% Antisepsis Kit) 2 applic [employer] ASS[employer]IATE EACH NARE 05/12/17 11:15 05/15/17 11:14 (Bactroban Nasal 2% Oint) 1 applic [employer] ASS[employer]ATE NASAL 05/12/17 12:00 05/15/17 11:59 (Chlorhexidine 2% Cloth) 3 pack [employer] ASS[employer]IATE TOPICAL 05/12/17 11:15 05/15/17 11:14 Lactated Ringer's 1,000 ml @ 30 mls/hr Q24H PRN IV 05/12/17 11:15 05/15/17 11:14 Sodium Chloride 500 ml @ 30 mls/hr [id number] PRN IV 05/12/17 11:15 05/15/17 11:14 (Lopressor) 25 mg [employer] ASSOCIATE PRN PO 05/12/17 11:15 05/15/17 11:14 (Betadine 5% Antisepsis Kit) 1 applic [employer] ASSOCIATE PRN EACH NARE 05/12/17 11:15 05/15/17 11:14 (NovoLIN R INJ) See Protocol Table ... [employer] ASSOCIATE PRN SQ 05/12/17 11:15 05/15/17 11:14 (Percocet 5-325 Mg) 1 tab Q4H PRN PO 05/12/17 16:30 (Percocet 5-325 Mg) 2 tab Q4H PRN PO 05/12/17 16:30 05/13/17 02:44 (Ativan Inj) 0.5 mg UNSCH PRN IV PUSH 05/12/17 16:30 05/13/17 16:29 (Atropine Inj) 0.5 mg UNSCH PRN IV PUSH 05/12/17 16:30 Sodium Chloride 250 ml @ 500 mls/hr ONCE PRN IV 05/12/17 16:30 05/13/17 16:29 (Reglan Inj) 10 mg Q4H PRN IV PUSH 05/12/17 16:30 (Zofran Inj) 4 mg Q4H PRN IV PUSH 05/12/17 16:30 (Xylocaine 1% Inj (50 ml)) 10 ml UNSCH PRN INFIL 05/12/17 16:30 05/13/17 16:29 Cefazolin Sodium/ Dextrose 50 ml @ 100 mls/hr Q8H IV 05/12/17 18:00 05/13/17 10:29 05/13/17 01:16 (Restoril) 15 mg HS PRN PO 05/12/17 16:30 (NS Flush) 2 ml BID IV FLUSH 05/12/17 21:00 (NS Flush) 2 ml UNSCH PRN IV FLUSH 05/12/17 16:30 (Norvasc) 5 mg DAILY PO 05/13/17 09:00 (Ecotrin Ec) 81 mg DAILY PO 05/13/17 09:00 (Coreg) 25 mg BID PO 05/12/17 21:00 05/12/17 21:38 (Neurontin) 300 mg BID PO 05/12/17 21:00 05/12/17 21:37 (Amaryl) 8 mg DAILY PO 05/13/17 09:00 (Hydrodiuril) 25 mg DAILY PO 05/13/17 09:00 (Entresto 24-26 Mg) 1 tab DAILY PO 05/13/17 09:00 (Aldactone) 25 mg DAILY PO 05/13/17 09:00 Miscellaneous Information ALL NURSING DEPARTME... UNSCH PRN .XX 05/12/17 17:15 05/13/17 17:14 Miscellaneous Information ALL NURSING DEPARTME... UNSCH PRN .XX 05/12/17 18:15 05/13/17 18:14 Vital Signs / I&O Vital Signs Date Time Temp Pulse Resp B/P (MAP) Pulse Ox O2 Delivery O2 Flow Rate FiO2 05/13/17 06:00 84 05/13/17 05:00 82 05/13/17 04:05 97.9 88 16 145/87 (106) 98 05/13/17 04:00 88 05/13/17 03:58 16 05/13/17 03:00 88 05/13/17 02:00 84 05/13/17 01:00 86 05/13/17 00:00 86 05/12/17 23:30 97.9 88 16 138/90 (106) 97 05/12/17 23:00 86 05/12/17 22:00 86 05/12/17 21:00 80 05/12/17 20:00 80 05/12/17 19:30 97.2 74 16 133/84 (100) 100 05/12/17 19:00 76 05/12/17 18:00 97.8 67 17 122/76 (91) 96 Room Air 05/12/17 18:00 98.2 72 14 124/90 (101) 100 05/12/17 17:45 67 16 108/74 (85) 96 Room Air 05/12/17 17:30 66 17 102/75 (84) 94 Room Air 05/12/17 17:15 65 17 108/75 (86) 96 Room Air 05/12/17 17:00 66 16 107/76 (86) 96 Room Air 05/12/17 16:45 66 15 108/76 (87) 96 Room Air 05/12/17 16:30 97.8 68 15 110/73 (85) 95 Simple Mask 6 05/12/17 11:42 I/O 05/12/17 05/12/17 05/12/17 05/13/17 05/13/17 05/13/17 07:00 15:00 23:00 07:00 15:00 23:00 Intake Total 200 ml 530 ml Output Total 450 ml Balance 200 ml 80 ml Intake Oral 480 ml IV Total 50 ml 50 ml Other 150 ml Output Urine Total 450 ml # Bowel Movements 0 Physical Exam GENERAL: Well-nourished, well-developed patient. SKIN: Warm and dry. LCW incision well approximated without erythema or drainage. HEAD: Normocephalic. EYES: No scleral icterus. No injection or drainage. NECK: Supple, trachea midline. No JVD or lymphadenopathy. CARDIOVASCULAR: Regular rate and rhythm without murmurs, gallops, or rubs. RESPIRATORY: Breath sounds equal bilaterally. No accessory muscle use. GASTROINTESTINAL: Abdomen soft, non-tender, nondistended. EXTREMITIES: No cyanosis, or edema. NEUROLOGICAL: Awake, alert, and oriented x 3. Non-focal. Laboratory Laboratory Tests Test 05/12/17 11:21 White Blood Count 5.4 TH/MM3 Red Blood Count 4.95 MIL/MM3 Hemoglobin 11.5 GM/DL Hematocrit 36.3 % Mean Corpuscular Volume 73.5 FL Mean Corpuscular Hemoglobin 23.3 PG Mean Corpuscular Hemoglobin Concent 31.7 % Red Cell Distribution Width 14.8 % Platelet Count 223 TH/MM3 Mean Platelet Volume 8.9 FL Neutrophils (%) (Auto) 57.3 % Lymphocytes (%) (Auto) 33.6 % Monocytes (%) (Auto) 6.1 % Eosinophils (%) (Auto) 2.7 % Basophils (%) (Auto) 0.3 % Neutrophils # (Auto) 3.1 TH/MM3 Lymphocytes # (Auto) 1.8 TH/MM3 Monocytes # (Auto) 0.3 TH/MM3 Eosinophils # (Auto) 0.1 TH/MM3 Basophils # (Auto) 0.0 TH/MM3 CBC Comment DIFF FINAL Differential Comment Prothrombin Time 12.0 SEC Prothromb Time International Ratio 1.1 RATIO Activated Partial Thromboplast Time 27.6 SEC Blood Urea Nitrogen 18 MG/DL Creatinine 1.05 MG/DL Random Glucose 359 MG/DL Calcium Level 8.9 MG/DL Sodium Level 133 MEQ/L Potassium Level 4.2 MEQ/L Chloride Level 100 MEQ/L Carbon Dioxide Level 26.1 MEQ/L Anion Gap 7 MEQ/L Estimat Glomerular Filtration Rate 66 ML/MIN Imaging Last Impressions Chest X-Ray 05/12/17 0000 Signed Impressions: Service Date/Time: April 16:41 - CONCLUSION: 1. No pneumothorax identified following pacer placement. Jos Figueroa MD Assessment and Plan Problem List: (1) Cardiomyopathy ICD Codes: I42.9 - Cardiomyopathy, unspecified Status: Acute Plan: DC home. FU with Dr. Vasquez in 2 weeks per my d/w him. Problem Qualifiers (1) Cardiomyopathy: Qualified Codes: I42.9 - Cardiomyopathy, unspecified Stefanie Dubois May 13, 2017 07:57
[2017-05-13] MEDS: GABAPENTIN 300 MG CAP PO SCH (08:35)
[2017-05-13] MEDS: CARVEDILOL 12.5 MG TAB PO SCH (08:36)
[2017-05-13] MEDS: SODIUM CHLORIDE 0.9% FLUSH 10 ML FLUSH IV FLUSH SCH (08:36)
[2017-05-13] MEDS ORDERED: SPIRONOLACTONE 25 MG TAB PO SCH (09:00)
[2017-05-13] MEDS ORDERED: ASPIRIN EC 81 MG TABEC PO SCH (09:00)
[2017-05-13] MEDS ORDERED: SACUBITRIL/VALSARTAN 24 MG-26 MG TAB PO SCH (09:00)
[2017-05-13] MEDS ORDERED: amLODIPine BESYLATE 5 MG TAB PO SCH (09:00)
[2017-05-13] MEDS ORDERED: GLIMEPIRIDE 4 MG TAB PO SCH (09:00)
[2017-05-13] MEDS ORDERED: HYDROCHLOROTHIAZIDE 25 MG TAB PO SCH (09:00)
--- NOTE | 2017-05-13 19:11 | EKG ---
Date Performed: 05/13/2017 Time Performed: 07:59:40 PTAGE: 52 years EKG: Sinus rhythm with PVC(s) with borderline 1st degree A-V block. Baseline artifact Left axis deviation Left ventric ular hypertrophy Abnormal ECG PREVIOUS TRACING : 05/13/2017 05.05 Compared to prior tracing no significant change DOCTOR: Noah Mullins Interpretating Date/Time 05/13/2017 19:10:01
--- NOTE | 2017-05-13 19:26 | EKG ---
Date Performed: 05/13/2017 Time Performed: 05:05:08 PTAGE: 52 years EKG: Sinus rhythm with borderline 1st degree A-V block Leftward axis Lateral T wave changes are nonspecific Borderline ECG PREVIOUS TRACING : 05/12/2017 16.52 Compared to prior tracing no significant change DOCTOR: Noah Mullins Interpretating Date/Time 05/13/2017 19:23:52
== END 2017-05-13 11:01 | disposition home or self-care (01) ==
LOC: HDOC 10:44 → HDIC 10:44 → HCIN 18:11 → HDOC 05-13 11:01
PROVIDERS: ATTEND Internal Medicine Interventional Cardiology
DX: I50.9 Heart failure, unspecified (principal); I44.0 Atrioventricular block, first degree; I42.9 Cardiomyopathy, unspecified; R06.00 Dyspnea, unspecified; R53.83 Other fatigue; I10 Essential (primary) hypertension; E11.9 Type 2 diabetes mellitus without complications; E78.5 Hyperlipidemia, unspecified; Z79.82 Long term (current) use of aspirin
CPT/HCPCS: 00530; 33249; 71010; 80048; 85025; 85610; 85730; 86850; 86900; 86901; 93005; 93620; C1722; C1730; C1895; J0690; J1815; J2250; J2270; J2370; J2405; J3010; J3370; J7050

== ENCOUNTER 2017-07-27 13:50 | Observation (INO) | payer OTHER ==
[2017-07-27] VITALS (7 sets, daily range): BP systolic 134–199; BP diastolic 64–100; PULSE 80–96; RESP 18–20; TEMP 98–98.3; O2SAT 96–98
[~2017-07-27 13:50] MED LIST changes: -ASPI-99 PO; +ASPI1TAB56 PO; +CARV25TA PO; +CEPH-460 PO; -COZA25TA PO; -DIGO0.12 PO; +HYDR25TA5 PO; -LEVEMIR SQ; -LIPI10TA PO; -METO25TA3 PO; +SACU1TAB PO
[2017-07-27] MEDS ORDERED: SODIUM CHLORIDE 0.9% FLUSH 10 ML FLUSH IVF PRN (14:45)
[2017-07-27] MEDS ORDERED: ASPIRIN 325 MG TAB PO ONE (14:45)
--- NOTE | 2017-07-27 15:56 | RADRPT ---
EXAM DATE/TIME: 07/27/2017 15:04 [facility] COMPARISON: CHEST SINGLE AP, May 12, 2017, 16:41. INDICATIONS : Defibrillator injury. Patient had her defibrillator pulled today. Chest pain at the battery since. MEDICAL HISTORY : Hypertension. Diabetes mellitus type 2. Asthma. SURGICAL HISTORY : Tubal ligation. Hysterectomy. section. Defibrillator. ENCOUNTER: Initial ACUITY: 1 day PAIN SCORE: 6/10 LOCATION: Bilateral chest FINDINGS: A single view of the chest demonstrates the lungs to be symmetrically aerated without evidence of mas s, infiltrate or effusion except for some minimal atelectatic changes of the right hemidiaphragm. Hea rt size is prominent but well compensated. Left subclavian unipolar pacer is radiographically intact. The cardiomediastinal contours are unremarkable. Osseous structures are intact. CONCLUSION: 1. Minimal atelectatic changes above the right hemidiaphragm. Lungs are otherwise clear. 2. Compensated cardiomegaly. 3. Left subclavian unipolar pacer is radiographically. No pneumothorax. Parveen Crystal MD on July 27, 2017 at 15:43 Board Certified Radiologist. This report was verified electronically.
[2017-07-27 16:26] LABS: AUTOMATED NEUTROPHIL # 2.9 TH/MM3 (1.8-7.7); BASOPHIL % 0.3 % (0.0-2.0); EOSINOPHIL # 0.1 TH/MM3 (0-0.4); EOSINOPHIL % 1.3 % (0.0-4.0); HEMATOCRIT 34.3 % (35.0-46.0); HEMOGLOBIN 10.9 GM/DL (11.6-15.3); LYMPH % 25.9 % (9.0-44.0); LYMPHOCYTE # 1.2 TH/MM3 (1.0-4.8); MEAN CELL VOLUME 73.5 FL (80.0-100.0); MEAN CORPUSCULAR HEMOGLOBIN 23.3 PG (27.0-34.0); MEAN CORPUSCULAR HGB CONC 31.7 % (32.0-36.0); MEAN PLATELET VOLUME 8.1 FL (7.0-11.0); MONO % 6.8 % (0.0-8.0); MONOCYTE # 0.3 TH/MM3 (0-0.9); NEUT % 65.7 % (16.0-70.0); PLATELET COUNT 225 TH/MM3 (150-450); RED BLOOD COUNT 4.66 MIL/MM3 (4.00-5.30); RED CELL DISTRIBUTION WIDTH 13.4 % (11.6-17.2); WHITE BLOOD COUNT 4.5 TH/MM3 (4.0-11.0)
[2017-07-27 16:37] LABS: INTERNATIONAL NORMALIZED RATIO 1.1 RATIO; PROTHROMBIN TIME - PATIENT 11.5 SEC (9.8-11.6)
[2017-07-27 16:41] LABS: AST (GOT) 8 U/L (15-37); BICARBONATE 29.8 MEQ/L (21.0-32.0); BLOOD UREA NITROGEN 14 MG/DL (7-18); CALCIUM 8.5 MG/DL (8.5-10.1); CHLORIDE 101 MEQ/L (98-107); CREATININE 0.92 MG/DL (0.50-1.00); GLOMERULAR FILTRATION RATE 77 ML/MIN (>89); GLUCOSE,RANDOM 393 MG/DL (74-106); LIPASE 96 U/L (73-393); SODIUM (NA) 138 MEQ/L (136-145)
[2017-07-27 16:46] LABS: ALKALINE PHOSPHATASE 114 U/L (45-117); ALT (GPT) 17 U/L (10-53); TOTAL BILIRUBIN ADULT 0.3 MG/DL (0.2-1.0); TROPONIN I 0.14 NG/ML (0.02-0.05)
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
[2017-07-27] MEDS ORDERED: MORPHINE SULFATE 2 MG/ML INJ IV PUSH ONE (17:45)
[2017-07-27] MEDS ORDERED: GLIM4TAB PO (18:29)
[2017-07-27] MEDS ORDERED: NALOXONE HCL 0.4 MG/ML AMP IV PUSH PRN (19:00)
[2017-07-27] MEDS ORDERED: DEXTROSE 50% IN WATER 50 ML VIAL(D50) IV PUSH PRN (19:00)
[2017-07-27] MEDS ORDERED: GLUCAGON 1 MG/ML VIAL OTHER PRN (19:00)
[2017-07-27] MEDS ORDERED: SODIUM CHLORIDE 0.9% FLUSH 10 ML FLUSH IV FLUSH PRN (19:00)
[2017-07-27] MEDS: SODIUM CHLORIDE 0.9% FLUSH 10 ML FLUSH IV FLUSH SCH (20:10)
[2017-07-27] MEDS: INSULIN ASPART SUPPLEMENTAL SCALE SQ SCH (20:11)
[2017-07-27] MEDS ORDERED: MORPHINE SULFATE 2 MG/ML INJ IV PUSH PRN (21:00)
[2017-07-27] MEDS: GABAPENTIN 300 MG CAP PO SCH (21:06)
[2017-07-27] MEDS: NITROGLYCERIN 0.4 MG SL 25 TABS/BTL SL PRN ×2 (21:07→21:15)
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
[2017-07-27] MEDS ORDERED: RESP: ALBUTEROL 2.5 MG/3 ML NEB (PRN) NEB (22:45)
[2017-07-27 23:12] LABS: TROPONIN I 0.12 NG/ML (0.02-0.05)
[2017-07-28 00:12] VITALS: BP 183/95; PULSE 85; RESP 18; TEMP 98.2; O2SAT 98
[2017-07-28] MEDS: HEPARIN SODIUM - SQ 10,000 UNITS/ML VIAL SQ SCH ×2 (00:15→06:17)
[2017-07-28 00:41] VITALS: PULSE 81
[2017-07-28] MEDS ORDERED: cloNIDine HCL 0.1 MG TAB PO ONE (00:45)
[2017-07-28] MEDS ORDERED: ACETAMINOPHEN 325 MG TAB PO ONE (00:45)
[2017-07-28 04:12] VITALS: BP 147/83; PULSE 80; RESP 18; TEMP 98.7; O2SAT 97
[2017-07-28 04:29] LABS: AUTOMATED NEUTROPHIL # 3.7 TH/MM3 (1.8-7.7); BASOPHIL % 0.2 % (0.0-2.0); EOSINOPHIL # 0.1 TH/MM3 (0-0.4); HEMATOCRIT 33.6 % (35.0-46.0); HEMOGLOBIN 10.4 GM/DL (11.6-15.3); LYMPH % 25.7 % (9.0-44.0); LYMPHOCYTE # 1.5 TH/MM3 (1.0-4.8); MEAN CELL VOLUME 73.4 FL (80.0-100.0); MEAN CORPUSCULAR HEMOGLOBIN 22.7 PG (27.0-34.0); MEAN PLATELET VOLUME 8.1 FL (7.0-11.0); MONO % 8.3 % (0.0-8.0); MONOCYTE # 0.5 TH/MM3 (0-0.9); NEUT % 64.8 % (16.0-70.0); PLATELET COUNT 212 TH/MM3 (150-450); RED BLOOD COUNT 4.58 MIL/MM3 (4.00-5.30); RED CELL DISTRIBUTION WIDTH 13.5 % (11.6-17.2); WHITE BLOOD COUNT 5.8 TH/MM3 (4.0-11.0)
[2017-07-28 04:42] LABS: BICARBONATE 27.3 MEQ/L (21.0-32.0); CALCIUM 8.2 MG/DL (8.5-10.1); CREATININE 0.77 MG/DL (0.50-1.00)
[2017-07-28 04:45] LABS: TROPONIN I 0.13 NG/ML (0.02-0.05)
[2017-07-28 08:00] VITALS: PULSE 69
[2017-07-28] MEDS: INSULIN ASPART SUPPLEMENTAL SCALE SQ SCH (08:00)
[2017-07-28] MEDS: GABAPENTIN 300 MG CAP PO SCH (08:18)
[2017-07-28] MEDS: SODIUM CHLORIDE 0.9% FLUSH 10 ML FLUSH IV FLUSH SCH (08:19)
[2017-07-28 08:54] VITALS: BP 129/84; PULSE 75; RESP 15; TEMP 96.2; O2SAT 98
[2017-07-28] MEDS ORDERED: SPIRONOLACTONE 25 MG TAB PO SCH (09:00)
[2017-07-28] MEDS ORDERED: ASPIRIN EC 81 MG TABEC PO SCH (09:00)
[2017-07-28] MEDS ORDERED: SACUBITRIL/VALSARTAN 24 MG-26 MG TAB PO SCH (09:00)
[2017-07-28] MEDS ORDERED: CARVEDILOL 12.5 MG TAB PO SCH (09:00)
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
--- NOTE | 2017-07-28 20:23 | EKG ---
Date Performed: 07/27/2017 Time Performed: 22:38:12 PTAGE: 52 years EKG: Sinus rhythm POSSIBLE LEFT ATRIAL ENLARGEMENT MARKED LEFT AXIS DEVIATION LEFT VENTRICULAR HYPERTROPHY AND ST-T CH SARABJIT ABNORMAL ECG SINCE PRIOR TRACING NO SIGNIFICANT CHANGE NOTED PREVIOUS TRACING : 07/27/2017 14.59 DOCTOR: Karlene Frances Interpretating Date/Time 07/28/2017 20:22:31
--- NOTE | 2017-07-28 20:25 | EKG ---
Date Performed: 07/28/2017 Time Performed: 04:17:54 PTAGE: 52 years EKG: Sinus rhythm POSSIBLE LEFT ATRIAL ENLARGEMENT MARKED LEFT AXIS DEVIATION LEFT VENTRICULAR HYPERTROPHY AND ST-T CH SARABJIT ABNORMAL ECG NO SIGNIFICANT CHANGE SINCE PRIOR TRACING PREVIOUS TRACING : 07/27/2017 22.38 DOCTOR: Karlene Frances Interpretating Date/Time 07/28/2017 20:24:14
--- NOTE | 2017-07-29 11:40 | EKG ---
Date Performed: 07/27/2017 Time Performed: 14:59:18 PTAGE: 52 years EKG: Sinus rhythm WITH OCCASIONAL VENTRICULAR PREMATURE COMPLEXES POSSIBLE LEFT ATRIAL ENLARGEMENT MARKED LEFT AXIS DE VIATION LEFT VENTRICULAR HYPERTROPHY AND ST-T CHANGE ABNORMAL ECG Compared to PREVIOUS TRACING , the patient has developed new anterolateral T-wave inversion. If this is a serial change, myocardial ischemia should be excluded clinically. PREVIOUS TRACIN05/13/2017 0 7.59 DOCTOR: Karlene Frances Interpretating Date/Time 07/29/2017 11:39:58
== END 2017-07-28 12:33 | disposition home or self-care (01) ==
LOC: NEPC 13:50 → NEDA 18:52 → NEPHCDU 22:08
PROVIDERS: ADMIT Internal Medicine; ATTEND Internal Medicine
DX: R07.89 Other chest pain (principal); D64.9 Anemia, unspecified; R74.8 Abnormal levels of other serum enzymes; R94.31 Abnormal electrocardiogram [ECG] [EKG]; I11.0 Hypertensive heart disease with heart failure; I50.9 Heart failure, unspecified; E11.40 Type 2 diabetes mellitus with diabetic neuropathy, unspecified; I49.3 Ventricular premature depolarization; I25.10 Atherosclerotic heart disease of native coronary artery without angina pectoris; F84.0 Autistic disorder; J45.909 Unspecified asthma, uncomplicated; I48.91 Unspecified atrial fibrillation; E78.00 Pure hypercholesterolemia, unspecified; Z79.899 Other long term (current) drug therapy; Z79.82 Long term (current) use of aspirin; Z95.810 Presence of automatic (implantable) cardiac defibrillator; Z88.2 Allergy status to sulfonamides; Z88.8 Allergy status to other drugs, medicaments and biological substances
CPT/HCPCS: 71045; 80048; 80053; 82550; 82948; 83690; 83735; 83880; 84484; 85025; 85610; 85730; 93005; 96372; 96374; 96376; 99285; G0378; J1644; J1815; J2270